=== PATIENT | male | born 1970 ===

== ENCOUNTER 2016-11-17 20:32 | Inpatient (IN) | payer MEDICAID, OTHER, SELFPAY ==
--- NOTE | 2016-11-17 21:09 | C.PDOC ---
History Of Present Illness 46 y/o M c no PMHx p/w chest pressure and dyspnea x 1 week. Symptoms only arise when patient is walking only a short distance (half a block) and get better with rest. He notes associated L hand tingling. He denies fever, cough, leg swelling, nausea, vomiting, diarrhea, recent travel, recent surgery, previous DVT/PE. No PMD. Time Seen by Provider: 11/17/16 20:48 Chief Complaint (Nursing): Chest Pain Past Medical History Vital Signs: Last Vital Signs Temp 97.5 F L 11/19/16 08:19 Pulse 69 11/19/16 08:19 Resp 20 11/19/16 08:19 BP 127/85 11/19/16 08:19 Pulse Ox 96 11/19/16 08:19 - Medical History PMH: Anxiety Surgical History: Appendectomy Family History: States: Diabetes - Social History Hx Tobacco Use: Yes Hx Alcohol Use: No Hx Substance Use: No - Immunization History Hx Tetanus Toxoid Vaccination: No Hx Influenza Vaccination: No Hx Pneumococcal Vaccination: No Review Of Systems Except As Marked, All Systems Reviewed And Found Negative. Constitutional: Negative for: Fever Cardiovascular: Positive for: Chest Pain Respiratory: Positive for: Shortness of Breath Gastrointestinal: Negative for: Vomiting Physical Exam - Physical Exam Additional Physical Exam Comments: Constitutional: No acute distress. Head: Normocephalic. Atraumatic. Eyes: PERRL. ENT: Moist mucous membranes. Neck: No JVD. Cardiovascular: No S3. Chest: No tenderness. Respiratory: No crackles or rhonchi or wheezing GI: Soft. Nontender. Nondistended. Back: No CVA tenderness. Musculoskeletal: No tenderness or swelling of extremities. Skin: No rash. Neurologic: Alert, no focal deficit. ED Course And Treatment - Laboratory Results Result Diagrams: 11/18/16 03:59 11/19/16 07:13 O2 Sat by Pulse Oximetry: 96 Medical Decision Making Medical Decision Making: PERC negative. EKG NSR at 73 bpm, no ST/T wave changes. Enzymes negative. Will keep patient for cardiac observation with concerning history. Dr. Dahl accepts to hospitalist service. Disposition - Disposition Disposition: HOSPITALIZED Disposition Time: 22:40 Condition: FAIR - POA Core Measure Indicators: Chest Pain - Clinical Impression Clinical Impression: Dyspnea on exertion
[2016-11-17 21:21] LABS: BASO # 0.1 K/uL (0.0-0.2); BASO % 0.9 % (0.0-2.0); EOS # 0.1 K/uL (0.0-0.7); EOS % 1.3 % (0.0-4.0); HEMATOCRIT 41.6 % (35.0-51.0); LYMPH # 1.5 K/uL (1.0-4.3); LYMPH % 24.5 % (20.0-40.0); MEAN CELL VOLUME 92.8 fL (80.0-94.0); MEAN CORPUSCULAR HEMOGLOBIN 31.4 pg (27.0-31.0); MEAN CORPUSCULAR HGB CONC 33.8 g/dL (33.0-37.0); MEAN PLATELET VOLUME 9.8 fL (7.2-11.7); MONO # 0.5 K/uL (0.0-0.8); MONO % 8.5 % (0.0-10.0); RED CELL DISTRIBUTION WIDTH 12.4 % (11.5-14.5); WHITE BLOOD COUNT 6.2 K/uL (4.8-10.8)
[2016-11-17 21:30] LABS: CHLORIDE 100 mmol/L (98-107); POTASSIUM 3.6 mmol/L (3.6-5.2); SODIUM 141 mmol/L (132-148)
[2016-11-17 21:32] LABS: AST/SGOT 28 U/L (17-59); BILIRUBIN,TOTAL 0.5 mg/dL (0.2-1.3); CARBON DIOXIDE 26 mmol/L (22-30); GFR AFRICAN-AMERICAN > 60
[2016-11-17 21:33] LABS: ALB/GLOB RATIO 1.5 (1.0-2.1); ALKALINE PHOSPHATASE 44 U/L (38-126); ALT/SGPT 35 U/L (21-72); BLOOD UREA NITROGEN 15 mg/dL (9-20); CALCIUM 8.8 mg/dl (8.6-10.4); GLUCOSE,RANDOM 114 mg/dL (75-110)
--- NOTE | 2016-11-18 01:13 | CP.PCM.HP ---
<Isabella Pearce - Last Filed: 11/18/16 02:55> History of Present Illness - History of Present Illness History of Present Illness: CC: " chest pain" 46 year old male with PMHx of asthma in adolescence, and cocaine use with last use 1 yr ago, presents to the hospital for chest pain and shortness of breath on exertion. Patient states he was healthy and normal until 10 days ago when he was playing in the park with his daughter and needed to stop secondary to chest pain and SOB. Chest pain and SOB resolved when he sat down to rest. Since then, shortness of breath and chest pain occur every time he walks. He noticed he was able to walk 100 steps before he began to feel SOB, but now he is down to 50 ft. Patient describes chest pain is pressure like, mid sternal, intermittent, alleviated by rest. He is able to lay flat and does not wake up in the middle of the night gasping for air. He also reports associated left UE cramping. He took 2 tabs of his mother's hydrocodone, with no relied. Admits to Hx of cocaine and marijuana use, with last use 1 year ago. Denies cough, wheezing, fevers, chills, nausea, vomiting, diarrhea, constipation. PMHx: asthma as an adolescent Medications: none Social Hx: smokes 1ppd for 15 years, stopped 10 days ago. Admits to cocaine and marijuana use 1 year ago. Denies alcohol use. Family Hx: mother with DM, HTN. Father with heroin addiction. Allergies: shrimp Surg Hx: appendectomy. PMD: none Present on Admission - Present on Admission Any Indicators Present on Admission: No Review of Systems - Constitutional Constitutional: absent: Chills, Fever - EENT Eyes: absent: Blurred Vision, Change in Vision - Cardiovascular Cardiovascular: Chest Pain, Chest Pain with Activity, Dyspnea, Dyspnea on Exertion. absent: Chest Pain at Rest, Lightheadedness, Palpitations, Paroxysmal Nocturnal Dyspnea, Pedal Edema, Radiating Pain - Respiratory Respiratory: absent: Cough, Dyspnea, Wheezing - Gastrointestinal Gastrointestinal: absent: Abdominal Pain, Constipation, Diarrhea, Nausea, Vomiting - Genitourinary Genitourinary: absent: Change in Urinary Stream, Difficulty Urinating - Musculoskeletal Musculoskeletal: absent: Back Pain, Numbness, Tingling - Integumentary Integumentary: absent: Lesions, Wounds - Neurological Neurological: absent: Dizziness, Numbness, Headaches, Tingling, Weakness - Psychiatric Psychiatric: absent: Anxiety, Depression - Endocrine Endocrine: absent: Fatigue, Palpitations Past Patient History - Past Social History Smoking Status: Light Smoker < 10 Cigarettes Daily - PSYCHIATRIC Hx Anxiety: Yes Hx Substance Use: No - SURGICAL HISTORY Hx Appendectomy: Yes Meds Allergies/Adverse Reactions: Allergies Allergy/AdvReac Type Severity Reaction Status Date / Time shellfish derived Allergy Verified 11/17/16 20:51 Physical Exam - Constitutional Appears: No Acute Distress - Head Exam Head Exam: NORMAL INSPECTION, NORMOCEPHALIC - Eye Exam Eye Exam: EOMI, Normal appearance - ENT Exam ENT Exam: Mucous Membranes Moist - Neck Exam Neck exam: Positive for: Full Rom, Normal Inspection - Respiratory Exam Respiratory Exam: Clear to Auscultation Bilateral, NORMAL BREATHING PATTERN. absent: Rales, Rhonchi, Wheezes - Cardiovascular Exam Cardiovascular Exam: REGULAR RHYTHM, +S1, +S2. absent: JVD, Systolic Murmur - GI/Abdominal Exam GI & Abdominal Exam: Distended (patient's baseline), Hernia (abdominal, not painful ), Normal Bowel Sounds, Soft. absent: Tenderness - Extremities Exam Extremities exam: Positive for: full ROM, normal inspection. Negative for: pedal edema, tenderness - Back Exam Back exam: NORMAL INSPECTION - Neurological Exam Neurological exam: Alert, Oriented x3 - Psychiatric Exam Psychiatric exam: Normal Affect, Normal Mood - Skin Skin Exam: Dry, Intact, Normal Color, Warm Results - Vital Signs Recent Vital Signs: Last Vital Signs Temp 97.5 F L 11/17/16 20:49 Pulse 66 11/17/16 23:00 Resp 14 11/17/16 23:00 BP 120/80 11/17/16 23:00 Pulse Ox 99 11/17/16 23:00 - Labs Result Diagrams: 11/17/16 21:17 11/17/16 21:17 Assessment & Plan (1) Chest pain Assessment and Plan: Admit to Tele/obs Patient with typical chest pain. Will consult cardio- Dr. Muñoz- help appreciated. KERRY #1 [id number]. EKG: NSR 73bpm. f/u KERRY Q8H X2 with EKG. CXR shows prominent pulm arteries as reviewed by attending. f/u official report. f/u FLP, Hgb A1C, TSH. f/u ECHO Start the following medications ASA 81 mg PO daily Lopressor 25 mg PO BID Crestor 2.5 mg PO HS Status: Acute (2) Dyspnea on exertion Assessment and Plan: see plan above. BNP 44.9 f/u ECHO Status: Acute (3) History of cocaine use Assessment and Plan: Patient reports last use 1 year ago. f/u UDS Status: Acute (4) Prophylactic measure Assessment and Plan: Heparin 5000 SC Q8H Pepcid 20 mg PO BID SCDs Status: Acute <Balta Dahl P - Last Filed: 11/26/16 22:23> Results - Vital Signs Recent Vital Signs: Last Vital Signs Temp 97.3 F L 11/21/16 07:40 Pulse 70 11/21/16 07:40 Resp 36 H 11/21/16 08:03 BP 130/90 11/21/16 07:40 Pulse Ox 100 11/21/16 08:03 - Labs Result Diagrams: 11/21/16 06:20 11/21/16 06:20 Attending/Attestation - Attestation I have personally seen and examined this patient.: Yes I have fully participated in the care of the patient.: Yes I have reviewed all pertinent clinical information: Yes
[2016-11-18 04:06] LABS: BASO % 0.8 % (0.0-2.0); EOS # 0.1 K/uL (0.0-0.7); EOS % 1.4 % (0.0-4.0); HEMATOCRIT 41.2 % (35.0-51.0); LYMPH # 1.8 K/uL (1.0-4.3); LYMPH % 30.8 % (20.0-40.0); MEAN CELL VOLUME 93.2 fL (80.0-94.0); MEAN CORPUSCULAR HEMOGLOBIN 31.6 pg (27.0-31.0); MEAN CORPUSCULAR HGB CONC 33.9 g/dL (33.0-37.0); MEAN PLATELET VOLUME 10.5 fL (7.2-11.7); MONO # 0.5 K/uL (0.0-0.8); MONO % 8.1 % (0.0-10.0); NRBC % 0.1 % (0.0-2.0); RED CELL DISTRIBUTION WIDTH 12.6 % (11.5-14.5)
[2016-11-18 04:25] LABS: CHLORIDE 104 mmol/L (98-107)
[2016-11-18 04:26] LABS: POTASSIUM 4.2 mmol/L (3.6-5.2); SODIUM 139 mmol/L (132-148)
[2016-11-18 04:27] LABS: CHOLESTEROL 194 mg/dL (0-199)
[2016-11-18 04:28] LABS: ALB/GLOB RATIO 1.4 (1.0-2.1); ALKALINE PHOSPHATASE 38 U/L (38-126); ALT/SGPT 38 U/L (21-72); AST/SGOT 28 U/L (17-59); BILIRUBIN,TOTAL 0.8 mg/dL (0.2-1.3); BLOOD UREA NITROGEN 16 mg/dL (9-20); CARBON DIOXIDE 22 mmol/L (22-30); GFR AFRICAN-AMERICAN > 60; GLUCOSE,RANDOM 97 mg/dL (75-110)
[2016-11-18 04:29] LABS: CALCIUM 8.7 mg/dl (8.6-10.4); MAGNESIUM 2.1 mg/dL (1.6-2.3); PHOSPHOROUS 3.5 mg/dL (2.5-4.5)
[2016-11-18 04:59] LABS: THYROID STIMULATING HORMONE 1.38 mIU/L (0.46-4.68)
--- NOTE | 2016-11-18 11:37 | RAD ---
HISTORY: r/o PNA COMPARISON: 04/24/2014 TECHNIQUE: Chest PA and lateral FINDINGS: LUNGS: No active pulmonary disease. PLEURA: No significant pleural effusion identified. No pneumothorax apparent. CARDIOVASCULAR: Normal. OSSEOUS STRUCTURES: No significant abnormalities. VISUALIZED UPPER ABDOMEN: Normal. OTHER FINDINGS: None. IMPRESSION: No active disease.
--- NOTE | 2016-11-18 12:06 | CON ---
DATE: 11/18/2016 A 46-year-old gentleman was brought in with chest discomfort. He denies any history of hypertension, diabetes, documented MS, peptic ulcer disease, bleeding disorders, TIAs or CVAs. On no medication. He does not work. For past 2 weeks, he has been having chest discomfort by walking less than a half a block. Described as a heaviness in the substernal area radiating to the left arm. Relieves with rest. This was getting worse, so he came to the Emergency Room and got admitted. PERSONAL HISTORY: One pack per day smoker. No ETOH abuse. Occasionally cocaine, last use 1 year ag o. FAMILY HISTORY: Mother with diabetes. Father has hypertension and coronary artery disease. ALLERGIES: ALLERGIC TO SHRIMP. PAST MEDICAL HISTORY: Appendectomy and back problems. REVIEW OF SYSTEMS: As above. Occasional wheezing. No fever, no chills, no weight loss. Appetite h as been good. No peptic ulcer disease, no bleeding disorders. No arthritis. No cough, no wheeze. Asthmatic in childhood, but has not bothered since then. No urinary complaints. No arthritis. No T IAs, no CVAs, no depression. PHYSICAL EXAMINATION: GENERAL: Shows a middle-aged male, in no distress. VITAL SIGNS: He is 5 feet 10 inches, weighs 170 pounds. His blood pressure is 110/70, heart rate of 68, regular, respiratory rate of 20, afebrile. HEENT: Normal. NECK: Supple. LUNGS: Clear. CARDIAC: Showed normal S1, S2 with a soft S4 gallop. Grade I-II/ . LABORATORY DATA: Unremarkable. Troponins were negative. ASSESSMENT: A 46-year-old man with history of typical exertional angina, getting worse. RECOMMENDATIONS: Place him on aspirin, Lovenox, beta blockers. The patient needs cardiac catheteriz ation. This was explained to the resident to arrange for cardiac catheterization by calling person jayda ho is on interventional call. We will follow after the cardiac cath is done. I thank you kindly. We will follow on p.r.n. basis. Balta Muñoz MD cc: [id number] TT: 11/18/2016 12:05:05 Confirmation # [id number] Dictation # [id number]
[2016-11-18] MEDS ORDERED: Enoxaparin 80 mg Syringe SC SCH (16:20)
--- NOTE | 2016-11-18 16:46 | CP.PCM.PN ---
<Leah Peters - Last Filed: 11/18/16 16:43> Subjective - Date & Time of Evaluation Date of Evaluation: 11/18/16 Time of Evaluation: 08:25 - Subjective Subjective: Patient seen and examined at bedside this morning. He reports that he does not currently have the chest pain while sitting in bed but that he gets chest pain with associated shortness of breath every time he walks for the past week and a half. He reports that when he gets this pain it is pressure like and midsternal and radiates down his arm. He has no significant medical history and this has not happened in the past other than recently. 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 Patient has no other complaints right now such as headache, changes in vision, sob, abd pain, n/v, diarrhea, constipation, swelling numbness or tingling in the extremities, or urinary complaints. Patient denies recent cocaine use but states he has used in the past. Current UDS is pending. Objective - Vital Signs/Intake and Output Vital Signs (last 24 hours): Temp Pulse Resp BP Pulse Ox 97.2 F L 70 20 123/74 96 11/18/16 16:11 11/18/16 16:11 11/18/16 16:11 11/18/16 16:11 11/18/16 16:11 Intake and Output: 11/18/16 11/18/16 06:59 18:59 Intake Total 150 Balance 150 - Medications Medications: Current Medications Aspirin (Aspirin Chewable) 81 mg PO DAILY [facility] Last Admin: 11/18/16 09:11 Dose: 81 mg Enoxaparin Sodium (Lovenox) 77 mg SC Q12 [facility] Famotidine (Pepcid) 20 mg PO BID [facility] Last Admin: 11/18/16 09:11 Dose: 20 mg Heparin Sodium (Porcine) (Heparin) 5,000 units SC Q8 [facility] Last Admin: 11/18/16 14:23 Dose: 5,000 units Lisinopril (Zestril) 2.5 mg PO DAILY [facility] Metoprolol Tartrate (Lopressor) 25 mg PO BID [facility] Pneumococcal Polyvalent Vaccine (Pneumovax 23 Vaccine) 0.5 ml IM .ONCE ONE Stop: 11/20/16 14:01 Rosuvastatin Calcium (Crestor) 2.5 mg PO HS [facility] - Labs Labs: 11/18/16 03:59 11/18/16 03:59 APTT 36 SECONDS (21-34) H 11/18/16 11:06 - Constitutional Appears: Non-toxic, No Acute Distress - Head Exam Head Exam: ATRAUMATIC, NORMAL INSPECTION - Eye Exam Eye Exam: EOMI, Normal appearance, PERRL Pupil Exam: NORMAL ACCOMODATION - ENT Exam ENT Exam: Mucous Membranes Moist - Respiratory Exam Respiratory Exam: Clear to Ausculation Bilateral, NORMAL BREATHING PATTERN. absent: Accessory Muscle Use, Chest Wall Tenderness, Respiratory Distress - Cardiovascular Exam Cardiovascular Exam: REGULAR RHYTHM, +S1, +S2 - GI/Abdominal Exam GI & Abdominal Exam: Soft, Normal Bowel Sounds. absent: Distended, Firm, Guarding, Tenderness - Extremities Exam Extremities Exam: Normal Inspection. absent: Calf Tenderness, Full ROM, Pedal Edema - Back Exam Back Exam: NORMAL INSPECTION. absent: CVA tenderness (L), CVA tenderness (R), paraspinal tenderness - Neurological Exam Neurological Exam: Alert, Awake, CN II-XII Intact, Oriented x3 Neuro motor strength exam: Left Upper Extremity: 5, Right Upper Extremity: 5, Left Lower Extremity: 5, Right Lower Extremity: 5 - Psychiatric Exam Psychiatric exam: Normal Affect, Normal Mood - Skin Skin Exam: Dry, Intact, Normal Color, Warm Assessment and Plan - Assessment and Plan (Free Text) Assessment: (1) Chest pain Assessment and Plan: Admit to Tele/obs Patient with typical chest pain. Will consult cardio- Dr. Muñoz- help appreciated. -> Consult Dr. Franklin for cardiac cath KERRY #1 0.0250, #2 0.0180, f/u 33 EKG: NSR 73bpm. f/u KERRY Q8H X2 with EKG. CXR shows no active disease Tchol 191, HDL 39, LDL 129, Trig 106 Hgb A1C 3.8 TSH 1.38 f/u ECHO Start the following medications ASA 81 mg PO daily Lisinopril 2.5 mg PO daily Crestor 2.5 mg PO HS Lovenox 77 mg SC BID Avoid BBLock due to possible recent cocaine use until we confirm with UDS Status: Acute (2) Dyspnea on exertion Assessment and Plan: see plan above. BNP 44.9 f/u ECHO results Status: Acute (3) History of cocaine use Assessment and Plan: Patient reports last use 1 year ago. f/u UDS Status: Acute (4) Prophylactic measure Assessment and Plan: On Lovenox Pepcid 20 mg PO BID SCDs Heart healthy diet Status: Acute <Ravinder Lopez H - Last Filed: 11/18/16 17:21> Objective - Vital Signs/Intake and Output Vital Signs (last 24 hours): Temp Pulse Resp BP Pulse Ox 97.2 F L 70 20 123/74 96 11/18/16 16:11 11/18/16 16:11 11/18/16 16:11 11/18/16 16:11 11/18/16 16:11 Intake and Output: 11/18/16 11/18/16 06:59 18:59 Intake Total 150 Balance 150 - Medications Medications: Current Medications Aspirin (Aspirin Chewable) 81 mg PO DAILY [facility] Last Admin: 11/18/16 09:11 Dose: 81 mg Enoxaparin Sodium (Lovenox) 77 mg SC Q12 [facility] Famotidine (Pepcid) 20 mg PO BID [facility] Last Admin: 11/18/16 09:11 Dose: 20 mg Lisinopril (Zestril) 2.5 mg PO DAILY [facility] Metoprolol Tartrate (Lopressor) 25 mg PO BID [facility] Pneumococcal Polyvalent Vaccine (Pneumovax 23 Vaccine) 0.5 ml IM .ONCE ONE Stop: 11/20/16 14:01 Rosuvastatin Calcium (Crestor) 2.5 mg PO HS [facility] - Labs Labs: 11/18/16 03:59 11/18/16 03:59 APTT 36 SECONDS (21-34) H 11/18/16 11:06 Attending/Attestation - Attestation I have personally seen and examined this patient.: Yes I have fully participated in the care of the patient.: Yes I have reviewed all pertinent clinical information, including history, physical exam and plan: Yes Notes (Text): Medical attending: Patient was seen and examined by me, agrees the above note by medical examiner. I reviewed the previous H&P by the admitting team, there is concern that the chest pain represents something quite significant as he can have chest pain even at rest. And it's made worse with exertion and relieved by rest. He was later evaluated by cardiology today and it was recommended that the patient be started on a beta perry as well as anticoagulation with Lovenox subcutaneous twice a day We've done both of these as well as consult for possible cardiac cath. However it should be mentioned that we have not given the beta perry only because a were very concerned that the patient may have used cocaine recently. Were waiting on the urine drug screen to return. If this is negative then we'll think about starting a beta perry as well Thank you very much, Ravinder Lopez
[2016-11-18] MEDS: Rosuvastatin Calcium 2.5 mg Tab PO SCH (21:52)
[2016-11-18] MEDS: Enoxaparin 80 mg Syringe SC SCH (21:53)
[2016-11-19 07:47] LABS: CHLORIDE 105 mmol/L (98-107)
[2016-11-19 07:48] LABS: SODIUM 142 mmol/L (132-148)
[2016-11-19 07:49] LABS: POTASSIUM 3.9 mmol/L (3.6-5.2)
[2016-11-19 07:51] LABS: ALB/GLOB RATIO 1.5 (1.0-2.1); ALKALINE PHOSPHATASE 48 U/L (38-126); ALT/SGPT 43 U/L (21-72); AST/SGOT 28 U/L (17-59); BILIRUBIN,TOTAL 0.6 mg/dL (0.2-1.3); BLOOD UREA NITROGEN 16 mg/dL (9-20); CARBON DIOXIDE 25 mmol/L (22-30); GFR AFRICAN-AMERICAN > 60; GLUCOSE,RANDOM 89 mg/dL (75-110); TOTAL PROTEIN 7.2 g/dL (6.3-8.3)
[2016-11-19 07:52] LABS: CALCIUM 8.6 mg/dl (8.6-10.4); MAGNESIUM 2.2 mg/dL (1.6-2.3); PHOSPHOROUS 4.1 mg/dL (2.5-4.5)
--- NOTE | 2016-11-19 09:42 | CP.PCM.PN ---
Subjective - Date & Time of Evaluation Date of Evaluation: 11/19/16 Time of Evaluation: 09:15 - Subjective Subjective: Patient was seen and examined by me. I sat down and spoke with patient - he says that he has just used cocaine prior to coming to the hospital with the chest pain with exertion. Currently he is not having pain however he is hesitant to walk since he's worried it might cause him pain. He denied palpitations, denied abominal pain, denied fever, denied shortness of breath. I explained to the patient very carefully that using cocaine puts him at high risk and that also we have held BB class medication since he has just used cocaine. Pending echo to be read at this time as he may or may not have vegetations (he did not report fever or chills, and does not have a WBC) He was seen and evaluated by cardiology and may need a cardiac cath, he is on Lovenox SC BID at theraputic doses as well as statin, and blood pressure medications. Objective - Vital Signs/Intake and Output Vital Signs (last 24 hours): Temp Pulse Resp BP Pulse Ox 97.5 F L 69 20 127/85 96 11/19/16 08:19 11/19/16 08:19 11/19/16 08:19 11/19/16 08:19 11/19/16 08:19 Intake and Output: 11/19/16 11/19/16 06:59 18:59 Intake Total 120 Balance 120 - Medications Medications: Current Medications Aspirin (Aspirin Chewable) 81 mg PO DAILY [facility] Last Admin: 11/18/16 09:11 Dose: 81 mg Enoxaparin Sodium (Lovenox) 77 mg SC Q12 [facility] Last Admin: 11/18/16 21:53 Dose: 77 mg Famotidine (Pepcid) 20 mg PO BID [facility] Last Admin: 11/18/16 18:05 Dose: 20 mg Ibuprofen (Motrin Tab) 600 mg PO TID PRN PRN Reason: Pain, moderate (4-7) Lisinopril (Zestril) 2.5 mg PO DAILY [facility] Metoprolol Tartrate (Lopressor) 25 mg PO BID [facility] Pneumococcal Polyvalent Vaccine (Pneumovax 23 Vaccine) 0.5 ml IM .ONCE ONE Stop: 11/20/16 14:01 Rosuvastatin Calcium (Crestor) 2.5 mg PO HS [facility] Last Admin: 11/18/16 21:52 Dose: 2.5 mg - Labs Labs: 11/18/16 03:59 11/19/16 07:13 APTT 36 SECONDS (21-34) H 11/18/16 11:06 - Constitutional Appears: Well, No Acute Distress - Head Exam Head Exam: NORMAL INSPECTION - Eye Exam Eye Exam: EOMI - ENT Exam ENT Exam: Mucous Membranes Moist - Neck Exam Neck Exam: Full ROM - Respiratory Exam Respiratory Exam: Clear to Ausculation Bilateral, NORMAL BREATHING PATTERN - Cardiovascular Exam Cardiovascular Exam: REGULAR RHYTHM - GI/Abdominal Exam GI & Abdominal Exam: Soft, Normal Bowel Sounds - Neurological Exam Neurological Exam: Alert, Awake, CN II-XII Intact, Oriented x3 Neuro motor strength exam: Left Upper Extremity: 5, Right Upper Extremity: 5, Left Lower Extremity: 5, Right Lower Extremity: 5 - Psychiatric Exam Psychiatric exam: Normal Affect, Normal Mood - Skin Skin Exam: Normal Color, Warm Assessment and Plan - Assessment and Plan (Free Text) Assessment: Assessment: (1) Chest pain + Cocaine use very recently 11/19: Pending on echo to return to assess for vegetations. Probably does not since the WBC are stable and no fever. He also smokes tobbaco as well. He may or may not need a cardiac cath. He is on Lovenox BID in theraputic doses. No BB at this time. Patient with typical chest pain. Will consult cardio- Dr. Muñoz- help appreciated. -> Consult Dr. Franklin for cardiac cath KERRY #1 0.0250, #2 0.0180, f/u 33 EKG: NSR 73bpm. f/u KERRY Q8H X2 with EKG. CXR shows no active disease Tchol 191, HDL 39, LDL 129, Trig 106 Hgb A1C 3.8 TSH 1.38 f/u ECHO Start the following medications ASA 81 mg PO daily Lisinopril 2.5 mg PO daily Crestor 2.5 mg PO HS Lovenox 77 mg SC BID Avoid BBLock due to possible recent cocaine use until we confirm with UDS Status: Acute (2) Dyspnea on exertion see plan above. BNP 44.9 f/u ECHO results (3) History of cocaine use 11/19: He reports useage one day before comming to the hospital. UDS positive Avoiding BB for now. (4) Prophylactic measure Assessment and Plan: On Lovenox Pepcid 20 mg PO BID Heart healthy diet
[2016-11-19] MEDS: Enoxaparin 80 mg Syringe SC SCH ×2 (10:42→22:27)
--- NOTE | 2016-11-19 11:38 | CP.PCM.CON ---
History of Present Illness - History of Present Illness History of Present Illness: CC: " chest pain" 46 year old male with PMHx of asthma in adolescence, and cocaine use with last use 1 yr ago, presents to the hospital for chest pain and shortness of breath on exertion. Patient states he was healthy and normal until 10 days ago when he was playing in the park with his daughter and needed to stop secondary to chest pain and SOB. Chest pain and SOB resolved when he sat down to rest. Since then, shortness of breath and chest pain occur every time he walks. He noticed he was able to walk 100 steps before he began to feel SOB, but now he is down to 50 ft. Patient describes chest pain is pressure like, mid sternal, intermittent, alleviated by rest. He is able to lay flat and does not wake up in the middle of the night gasping for air. He also reports associated left UE cramping. He took 2 tabs of his mother's hydrocodone, with no relied. Admits to Hx of cocaine and marijuana use, with last use 1 year ago. Denies cough, wheezing, fevers, chills, nausea, vomiting, diarrhea, constipation. PMHx: asthma as an adolescent Medications: none Social Hx: smokes 1ppd for 15 years, stopped 10 days ago. Admits to cocaine and marijuana use 1 year ago. Denies alcohol use. Family Hx: mother with DM, HTN. Father with heroin addiction. Allergies: shrimp Surg Hx: appendectomy. PMD: none TODAY: 11/20/16: c/o of central CP reproducible at mid-lower sternum, no radiation , TELE: NSR, normal HR No fevers, chills, N/V; no PND or orthopnea Review of Systems - Review of Systems All systems: reviewed and no additional remarkable complaints except Past Patient History - Past Medical History & Family History Past Medical History?: Yes - Past Social History Smoking Status: Light Smoker < 10 Cigarettes Daily - CARDIAC Hx Cardiac Disorders: No - PULMONARY Hx Respiratory Disorders: Yes Hx Asthma: Yes (" When I was young") - NEUROLOGICAL Hx Neurological Disorder: No - HEENT Hx HEENT Problems: No - RENAL Hx Chronic Kidney Disease: No - ENDOCRINE/METABOLIC Hx Endocrine Disorders: No - HEMATOLOGICAL/ONCOLOGICAL Hx Blood Disorders: No - INTEGUMENTARY Hx Dermatological Problems: No - MUSCULOSKELETAL/RHEUMATOLOGICAL Hx Musculoskeletal Disorders: No Hx Falls: No - GASTROINTESTINAL Hx Gastrointestinal Disorders: No - GENITOURINARY/GYNECOLOGICAL Hx Genitourinary Disorders: No - PSYCHIATRIC Hx Anxiety: Yes Hx Substance Use: No - SURGICAL HISTORY Hx Appendectomy: Yes - ANESTHESIA Hx Anesthesia: Yes Hx Anesthesia Reactions: No Hx Malignant Hyperthermia: No Has any member of the family had a problem w/ anesthesia?: No Meds Allergies/Adverse Reactions: Allergies Allergy/AdvReac Type Severity Reaction Status Date / Time shellfish derived Allergy Verified 11/17/16 20:51 - Medications Medications: Current Medications Aspirin (Aspirin Chewable) 81 mg PO DAILY [facility] Last Admin: 11/19/16 10:33 Dose: 81 mg Enoxaparin Sodium (Lovenox) 77 mg SC Q12 [facility] Last Admin: 11/19/16 10:42 Dose: 77 mg Famotidine (Pepcid) 20 mg PO BID [facility] Last Admin: 11/19/16 10:33 Dose: 20 mg Ibuprofen (Motrin Tab) 600 mg PO TID PRN PRN Reason: Pain, moderate (4-7) Last Admin: 11/19/16 10:33 Dose: 600 mg Lisinopril (Zestril) 2.5 mg PO DAILY [facility] Last Admin: 11/19/16 10:42 Dose: 2.5 mg Metoprolol Tartrate (Lopressor) 25 mg PO BID [facility] Pneumococcal Polyvalent Vaccine (Pneumovax 23 Vaccine) 0.5 ml IM .ONCE ONE Stop: 11/20/16 14:01 Rosuvastatin Calcium (Crestor) 2.5 mg PO HS [facility] Last Admin: 11/18/16 21:52 Dose: 2.5 mg Physical Exam - Head Exam Head Exam: ATRAUMATIC, NORMAL INSPECTION, NORMOCEPHALIC - Eye Exam Eye Exam: Normal appearance - ENT Exam ENT Exam: Mucous Membranes Moist, Normal Oropharynx - Neck Exam Neck exam: Negative for: Tenderness, Thyromegaly - Respiratory Exam Respiratory Exam: Clear to Auscultation Bilateral, NORMAL BREATHING PATTERN. absent: Rhonchi, Wheezes - Cardiovascular Exam Cardiovascular Exam: REGULAR RHYTHM, +S1, +S2. absent: +S4, Systolic Murmur - GI/Abdominal Exam GI & Abdominal Exam: Normal Bowel Sounds, Soft. absent: Tenderness - Extremities Exam Extremities exam: Positive for: normal inspection. Negative for: calf tenderness - Back Exam Back exam: absent: CVA tenderness (L), CVA tenderness (R) - Neurological Exam Neurological exam: Alert, Oriented x3 - Psychiatric Exam Psychiatric exam: Anxious - Skin Skin Exam: Normal Color, Warm Results - Vital Signs Recent Vital Signs: Last Vital Signs Temp 97.5 F L 11/19/16 08:19 Pulse 69 11/19/16 08:19 Resp 20 11/19/16 08:19 BP 127/85 11/19/16 08:19 Pulse Ox 96 11/19/16 10:22 - Labs Result Diagrams: 11/18/16 03:59 11/20/16 07:36 Labs: Laboratory Results - last 24 hr 11/18/16 11/18/16 11/19/16 16:54 19:10 07:13 Sodium 142 Potassium 3.9 Chloride 105 Carbon Dioxide 25 Anion Gap 16 BUN 16 Creatinine 0.9 Est GFR ( Amer) > 60 Est GFR (Non-Af Amer) > 60 Random Glucose 89 Calcium 8.6 Phosphorus 4.1 Magnesium 2.2 Total Bilirubin 0.6 AST 28 ALT 43 Alkaline Phosphatase 48 Total Creatine Kinase 86 CK-MB (Mass) 0.68 Troponin I, Quant 0.0150 Total Protein 7.2 Albumin 4.3 Globulin 2.8 Albumin/Globulin Ratio 1.5 Urine Opiates Screen Negative Urine Methadone Screen Negative Ur Barbiturates Screen Negative Ur Phencyclidine Scrn Negative Ur Amphetamines Screen Negative U Benzodiazepines Scrn Negative U Oth Cocaine Metabols Positive U Cannabinoids Screen Negative Assessment & Plan - Assessment and Plan (Free Text) Assessment: 46 y/o with recurrence CP; * EKG 11/18/16; NSR, no acute changes * ECHO directly seen by me: 11/18/16: normal LVEF and wall motion, mild LVH, Mild LAE, grade 2 DD, Normal PASP * CXR: No infiltrate or effusion Given recurrence of pain especially with exertion: R&B of cath discussed and patient agrees: will plan in AM 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
[2016-11-19] MEDS: Rosuvastatin Calcium 2.5 mg Tab PO SCH (22:27)
[2016-11-20 07:52] LABS: CHLORIDE 100 mmol/L (98-107); SODIUM 142 mmol/L (132-148)
[2016-11-20 07:54] LABS: GFR AFRICAN-AMERICAN > 60
[2016-11-20 07:55] LABS: ALB/GLOB RATIO 1.5 (1.0-2.1); ALKALINE PHOSPHATASE 43 U/L (38-126); ALT/SGPT 45 U/L (21-72); AST/SGOT 34 U/L (17-59); BILIRUBIN,TOTAL 0.4 mg/dL (0.2-1.3); BLOOD UREA NITROGEN 16 mg/dL (9-20); CARBON DIOXIDE 30 mmol/L (22-30); GLUCOSE,RANDOM 85 mg/dL (75-110); TOTAL PROTEIN 7.2 g/dL (6.3-8.3)
[2016-11-20 07:56] LABS: MAGNESIUM 2.2 mg/dL (1.6-2.3); PHOSPHOROUS 4.2 mg/dL (2.5-4.5)
[2016-11-20] MEDS: Enoxaparin 80 mg Syringe SC SCH ×2 (09:05→21:15)
--- NOTE | 2016-11-20 09:18 | CP.PCM.PN ---
Subjective - Date & Time of Evaluation Date of Evaluation: 11/20/16 Time of Evaluation: 09:00 - Subjective Subjective: Patient reported a brief episode of pain overnight. As mentioned before the paintent is here with Chest Pain, and shortness of breath, he had just recently used cocaine At rest he denied shortness of breath at rest, denied palpitations, denied headache, denied abdominal pain, denied fever/chills On exam we also walked the patient in the hallway, he denied chest pain with walking, denied palpitation. He also denied shortness of breath when walking with me - however I should point out he looked short of breath when I watched him though he denies this. Denied palpitations. On the child monitor he was NSR and HR 90s when walking. Still pending on the echo to be reported. Objective - Vital Signs/Intake and Output Vital Signs (last 24 hours): Temp Pulse Resp BP Pulse Ox 97.8 F 67 20 129/90 97 11/20/16 07:00 11/20/16 07:00 11/20/16 07:00 11/20/16 07:00 11/20/16 07:00 Intake and Output: 11/20/16 11/20/16 06:59 18:59 Intake Total 240 Balance 240 - Medications Medications: Current Medications Aspirin (Aspirin Chewable) 81 mg PO DAILY [facility] Last Admin: 11/20/16 09:07 Dose: 81 mg Enoxaparin Sodium (Lovenox) 77 mg SC Q12 [facility] Last Admin: 11/20/16 09:05 Dose: 77 mg Famotidine (Pepcid) 20 mg PO BID [facility] Last Admin: 11/20/16 09:04 Dose: 20 mg Ibuprofen (Motrin Tab) 600 mg PO TID PRN PRN Reason: Pain, moderate (4-7) Last Admin: 11/19/16 10:33 Dose: 600 mg Lisinopril (Zestril) 2.5 mg PO DAILY [facility] Last Admin: 11/20/16 09:04 Dose: 2.5 mg Pneumococcal Polyvalent Vaccine (Pneumovax 23 Vaccine) 0.5 ml IM .ONCE ONE Stop: 11/20/16 14:01 Rosuvastatin Calcium (Crestor) 2.5 mg PO [facility] Last Admin: 11/19/16 22:27 Dose: 2.5 mg - Labs Labs: 11/20/16 07:36 APTT 36 SECONDS (21-34) H 11/18/16 11:06 - Constitutional Appears: Well, No Acute Distress - Eye Exam Eye Exam: EOMI, Normal appearance - ENT Exam ENT Exam: Mucous Membranes Moist - Respiratory Exam Respiratory Exam: Clear to Ausculation Bilateral, NORMAL BREATHING PATTERN - Cardiovascular Exam Cardiovascular Exam: REGULAR RHYTHM - GI/Abdominal Exam GI & Abdominal Exam: Soft, Normal Bowel Sounds Assessment and Plan - Assessment and Plan (Free Text) Assessment: (1) Chest pain + Cocaine use very recently 11/20: Still pending echo at this time. 11/19: Pending on echo to return to assess for vegetations. Probably does not since the WBC are stable and no fever. He also smokes tobbaco as well. He may or may not need a cardiac cath. He is on Lovenox BID in theraputic doses. No BB at this time. Patient with typical chest pain. Will consult cardio- Dr. Muñoz- help appreciated. -> Consult Dr. Franklin for cardiac cath KERRY #1 0.0250, #2 0.0180, f/u 33 EKG: NSR 73bpm. f/u KERRY Q8H X2 with EKG. CXR shows no active disease Tchol 191, HDL 39, LDL 129, Trig 106 Hgb A1C 3.8 TSH 1.38 f/u ECHO ASA 81 mg PO daily Lisinopril 2.5 mg PO daily Crestor 2.5 mg PO HS Lovenox 77 mg SC BID Avoid BBLock due to recent cocaine use, + UDS (2) Dyspnea on exertion see plan above. BNP 44.9 f/u ECHO results (3) History of cocaine use 11/20: We had another very long conversation about the dangers of cocaine. 11/19: He reports useage one day before comming to the hospital. UDS positive Avoiding BB for now. (4) Prophylactic measure Assessment and Plan: On Lovenox Pepcid 20 mg PO BID Heart healthy diet
[2016-11-20] MEDS ORDERED: Pneumococcal 23-Valent Vaccine IM ONE (14:00)
--- NOTE | 2016-11-20 15:42 | CP.PCM.PN ---
Subjective - Date & Time of Evaluation Date of Evaluation: 11/20/16 Time of Evaluation: 15:41 - Subjective Subjective: no chest pains.seen by interventional cardio.cath in am. Objective - Vital Signs/Intake and Output Vital Signs (last 24 hours): Temp Pulse Resp BP Pulse Ox 97.8 F 74 20 144/76 97 11/20/16 07:00 11/20/16 13:17 11/20/16 07:00 11/20/16 13:17 11/20/16 07:00 Intake and Output: 11/20/16 11/20/16 06:59 18:59 Intake Total 240 600 Balance 240 600 - Medications Medications: Current Medications Aspirin (Aspirin Chewable) 81 mg PO DAILY [facility] Last Admin: 11/20/16 09:07 Dose: 81 mg Enoxaparin Sodium (Lovenox) 77 mg SC Q12 [facility] Last Admin: 11/20/16 09:05 Dose: 77 mg Famotidine (Pepcid) 20 mg PO BID [facility] Last Admin: 11/20/16 09:04 Dose: 20 mg Ibuprofen (Motrin Tab) 600 mg PO TID PRN PRN Reason: Pain, moderate (4-7) Last Admin: 11/20/16 13:15 Dose: 600 mg Lisinopril (Zestril) 2.5 mg PO DAILY [facility] Last Admin: 11/20/16 09:04 Dose: 2.5 mg Rosuvastatin Calcium (Crestor) 2.5 mg PO HS [facility] Last Admin: 11/19/16 22:27 Dose: 2.5 mg - Labs Labs: 11/20/16 07:36 APTT 36 SECONDS (21-34) H 11/18/16 11:06 - Constitutional Appears: No Acute Distress Assessment and Plan - Assessment and Plan (Free Text) Assessment: cath in am.
--- NOTE | 2016-11-20 16:38 | CARD ---
APPROVED REPORT EKG Measurement Heart [id number] MS [id number] [id number] <Conclusion> Normal sinus rhythm Normal ECG
[2016-11-20] MEDS: Rosuvastatin Calcium 2.5 mg Tab PO SCH (21:14)
[2016-11-21 06:22] LABS: BASO # 0.1 K/uL (0.0-0.2); BASO % 0.7 % (0.0-2.0); EOS # 0.2 K/uL (0.0-0.7); EOS % 2.2 % (0.0-4.0); HEMATOCRIT 41.3 % (35.0-51.0); LYMPH # 1.9 K/uL (1.0-4.3); LYMPH % 24.2 % (20.0-40.0); MEAN CELL VOLUME 93.6 fL (80.0-94.0); MEAN CORPUSCULAR HEMOGLOBIN 31.7 pg (27.0-31.0); MEAN CORPUSCULAR HGB CONC 33.8 g/dL (33.0-37.0); MEAN PLATELET VOLUME 10.1 fL (7.2-11.7); MONO # 0.7 K/uL (0.0-0.8); MONO % 8.3 % (0.0-10.0); RED CELL DISTRIBUTION WIDTH 12.6 % (11.5-14.5)
[2016-11-21 06:39] LABS: CHLORIDE 102 mmol/L (98-107); POTASSIUM 4.2 mmol/L (3.6-5.2); SODIUM 141 mmol/L (132-148)
[2016-11-21 06:41] LABS: BILIRUBIN,TOTAL 0.7 mg/dL (0.2-1.3); CARBON DIOXIDE 24 mmol/L (22-30); GFR AFRICAN-AMERICAN > 60
[2016-11-21 06:42] LABS: ALB/GLOB RATIO 1.4 (1.0-2.1); ALKALINE PHOSPHATASE 38 U/L (38-126); ALT/SGPT 73 U/L (21-72); AST/SGOT 56 U/L (17-59); BLOOD UREA NITROGEN 15 mg/dL (9-20); CALCIUM 8.2 mg/dl (8.6-10.4); GLUCOSE,RANDOM 88 mg/dL (75-110); MAGNESIUM 1.9 mg/dL (1.6-2.3); PHOSPHOROUS 3.9 mg/dL (2.5-4.5); TOTAL PROTEIN 6.7 g/dL (6.3-8.3)
--- NOTE | 2016-11-21 07:56 | CP.PCM.PN ---
Subjective - Date & Time of Evaluation Date of Evaluation: 11/21/16 Time of Evaluation: 07:54 - Subjective Subjective: Patient seen and examined at bedside. Objective - Vital Signs/Intake and Output Vital Signs (last 24 hours): Temp Pulse Resp BP Pulse Ox 97.9 F 68 20 115/78 98 11/21/16 04:00 11/21/16 04:34 11/21/16 04:00 11/21/16 04:00 11/21/16 04:00 Intake and Output: 11/21/16 11/21/16 06:59 18:59 Intake Total 0 Balance 0 - Medications Medications: Current Medications Aspirin (Aspirin Chewable) 81 mg PO DAILY [facility] Last Admin: 11/20/16 09:07 Dose: 81 mg Enoxaparin Sodium (Lovenox) 77 mg SC Q12 [facility] Last Admin: 11/20/16 21:15 Dose: 77 mg Famotidine (Pepcid) 20 mg PO BID [facility] Last Admin: 11/20/16 17:04 Dose: 20 mg Ibuprofen (Motrin Tab) 600 mg PO TID PRN PRN Reason: Pain, moderate (4-7) Last Admin: 11/20/16 13:15 Dose: 600 mg Lisinopril (Zestril) 2.5 mg PO DAILY [facility] Last Admin: 11/20/16 09:04 Dose: 2.5 mg Rosuvastatin Calcium (Crestor) 2.5 mg PO HS [facility] Last Admin: 11/20/16 21:14 Dose: 2.5 mg - Labs Labs: 11/21/16 06:20 11/21/16 06:20 PT 11.0 SECONDS (9.7-12.2) 11/21/16 06:20 INR 1.0 11/21/16 06:20 APTT 36 SECONDS (21-34) H 11/18/16 11:06 Assessment and Plan - Assessment and Plan (Free Text) Assessment: (1) Chest pain + Cocaine use very recently 11/21: For cardiac cath today. 11/20: Still pending echo at this time. 11/19: Pending on echo to return to assess for vegetations. Probably does not since the WBC are stable and no fever. He also smokes tobbaco as well. He may or may not need a cardiac cath. He is on Lovenox BID in theraputic doses. No BB at this time. Patient with typical chest pain. Will consult cardio- Dr. Muñoz- help appreciated. -> Consult Dr. Franklin for cardiac cath KERRY #1 0.0250, #2 0.0180, f/u 33 EKG: NSR 73bpm. f/u KERRY Q8H X2 with EKG. CXR shows no active disease Tchol 191, HDL 39, LDL 129, Trig 106 Hgb A1C 3.8 TSH 1.38 f/u ECHO ASA 81 mg PO daily Lisinopril 2.5 mg PO daily Crestor 2.5 mg PO HS Lovenox 77 mg SC BID Avoid BBLock due to recent cocaine use, + UDS (2) Dyspnea on exertion see plan above. BNP 44.9 f/u ECHO results (3) History of cocaine use 11/21: Continue to counselor marriage and family patient regarding dangers of cocaine use. 11/20: We had another very long conversation about the dangers of cocaine. 11/19: He reports useage one day before comming to the hospital. UDS positive Avoiding BB for now. (4) Prophylactic measure Assessment and Plan: On Lovenox Pepcid 20 mg PO BID Heart healthy diet
--- NOTE | 2016-11-21 08:05 | CP.PCM.PN ---
Subjective - Date & Time of Evaluation Date of Evaluation: 11/21/16 Time of Evaluation: 08:02 - Subjective Subjective: Patient seen and examined at bedside. Objective - Vital Signs/Intake and Output Vital Signs (last 24 hours): Temp Pulse Resp BP Pulse Ox 97.9 F 68 20 115/78 98 11/21/16 04:00 11/21/16 04:34 11/21/16 04:00 11/21/16 04:00 11/21/16 04:00 Intake and Output: 11/21/16 11/21/16 06:59 18:59 Intake Total 0 Balance 0 - Medications Medications: Current Medications Aspirin (Aspirin Chewable) 81 mg PO DAILY [facility] Last Admin: 11/20/16 09:07 Dose: 81 mg Enoxaparin Sodium (Lovenox) 77 mg SC Q12 [facility] Last Admin: 11/20/16 21:15 Dose: 77 mg Famotidine (Pepcid) 20 mg PO BID [facility] Last Admin: 11/20/16 17:04 Dose: 20 mg Ibuprofen (Motrin Tab) 600 mg PO TID PRN PRN Reason: Pain, moderate (4-7) Last Admin: 11/20/16 13:15 Dose: 600 mg Lisinopril (Zestril) 2.5 mg PO DAILY [facility] Last Admin: 11/20/16 09:04 Dose: 2.5 mg Rosuvastatin Calcium (Crestor) 2.5 mg PO HS [facility] Last Admin: 11/20/16 21:14 Dose: 2.5 mg - Labs Labs: 11/21/16 06:20 11/21/16 06:20 PT 11.0 SECONDS (9.7-12.2) 11/21/16 06:20 INR 1.0 11/21/16 06:20 APTT 36 SECONDS (21-34) H 11/18/16 11:06 Assessment and Plan - Assessment and Plan (Free Text) Assessment: Right Sided Hemiparesis 11/21: 11/20: Resolved. The MRI did not show acute findings. Patient was not entirely cooperative on exam this morning, got xanax due to agitation and throwing phone at hospital staff. 11/19: No acute findings on the MRI Brain, only her old Basal Ganglia infarct. f/ u carotid doppler 11/18-11/19: Resolved, facial droop not evident. - secondary to hypoglycemia vs TIA vs CVA vs seizure - Resolved s/p D50 administration - CT head - Focal hypodensity in the left basal ganglia suggestive for a chronic lacunar infarct. Chronic microvascular ischemic changes. Cerebellar atrophy. Sinus mucosal thickening. Please see full report - Neurology consulted (Usha) - help appreciated - ED spoke with Dr Kerr - believes it likely to be due to hypoglycemia - f/u further recs - seizure precautions Urinary Tract Infection and urinary retention 11/21: Urine culture (11/19) clean and no growth. Will bladder scan to evaluate for retention. 11/20: Will Bladder scan again - if still a lot of urine then will start a burgos. She did have some tenderness on abdomen. 11/19: Bladder scan 460cc. Patient was straight cathed. f/u urine culture Start Rocephin 1Gm IVPB Q12 (started 11/19) 11/18: UA(+) for 2+ Leuk esterase and occult high bacteria. Consider as source of AMS, patient otherwise asymptomatic on exam. Hypoglycemia 11/21: Glucose 11/20: Doing ok right now 11/19: WNL 11/18: Random glucose 410, however most readings WNL on ISS. -BG 44 at presentation to ED, D50 given - resolved HISS Holding home meds accuchecks Hx of Diabetes Mellitus 11/21 11/18: Random glucose 410, however most readings WNL on ISS. A1C of 6.3 Holding home meds HISS Accuchecks Hx of hypertension Losartan 50mg Daily HCTZ 12.5 mg Daily Monitor and adjust as necessary Hx of vertigo restart home meclizine Hx of Lymphoma being treated outpatient by Josef Mondragon ([phone]) Per family, had PET scan in Jul 2016 that was normal, and last treatment was in Aug 2016 Hx of Depression Patient takes Trintellix 10mg PO daily (not on formulary). to start 11/19. PPX Lovenox Pepcid PT/OT treat and eval
[2016-11-21 08:36] VITALS: BP 130/90; PULSE 70; TEMP 97.3
[2016-11-21] MEDS ORDERED: Heparin25000 units/250ml 1/2NS 250 ML IV ONE (09:05)
--- NOTE | 2016-11-21 09:11 | CP.PCM.PN ---
Subjective - Date & Time of Evaluation Date of Evaluation: 11/21/16 Time of Evaluation: 09:08 - Subjective Subjective: S/P C. Cath Severe distal LM, ostial LAD, ostial LCX, mid LCX and mid RCA disease Calcific stenosis Low-normal LVEF with elevated LVEDP Patient will need referral for CABG this admission based on critical anatomy. Plan: Heparin GTT PTT 50-60; cont ASA, crestor, initiate B-blockers, cont LINA- I. Arrangements will be made for CABG. Objective - Vital Signs/Intake and Output Vital Signs (last 24 hours): Temp Pulse Resp BP Pulse Ox 97.3 F L 70 16 130/90 98 11/21/16 07:40 11/21/16 07:40 11/21/16 07:40 11/21/16 07:40 11/21/16 07:40 Intake and Output: 11/21/16 11/21/16 06:59 18:59 Intake Total 0 Balance 0 - Medications Medications: Current Medications Aspirin (Aspirin Chewable) 81 mg PO DAILY [facility] Last Admin: 11/20/16 09:07 Dose: 81 mg Enoxaparin Sodium (Lovenox) 77 mg SC Q12 [facility] Last Admin: 11/20/16 21:15 Dose: 77 mg Famotidine (Pepcid) 20 mg PO BID [facility] Last Admin: 11/20/16 17:04 Dose: 20 mg Ibuprofen (Motrin Tab) 600 mg PO TID PRN PRN Reason: Pain, moderate (4-7) Last Admin: 11/20/16 13:15 Dose: 600 mg Lisinopril (Zestril) 2.5 mg PO DAILY [facility] Last Admin: 11/20/16 09:04 Dose: 2.5 mg Rosuvastatin Calcium (Crestor) 2.5 mg PO HS [facility] Last Admin: 11/20/16 21:14 Dose: 2.5 mg - Labs Labs: 11/21/16 06:20 11/21/16 06:20 PT 11.0 SECONDS (9.7-12.2) 11/21/16 06:20 INR 1.0 11/21/16 06:20 APTT 36 SECONDS (21-34) H 11/18/16 11:06
--- NOTE | 2016-11-21 09:27 | CARDCATH ---
PROCEDURE DATE: 11/21/2016 PROCEDURES: Left heart catheterization, left ventriculogram, coronary angiogram. BRIEF HISTORY: The patient is a 46-year-old male who has a history of smoking 1 pack per day for ove r 15 years and he has admitted to using illicit substances in the past, per charts more than 1 year a go. He presents with recurrent chest pain and shortness of breath with exertion. Inpatient workup r evealed no evidence for troponin elevation, normal sinus rhythm on EKG and normal LV function and wal l motion on echocardiogram. Due to persistence of chest pain and shortness of breath, patient was br ought to the cardiac catheterization lab after informed consent obtained. Risks and benefits of the procedure were explained in detail to the patient. The patient was brought to the manager cardiac cath, prepped and draped in the usual sterile fashion and pre-katiuska tion with Solu-Cortef, Benadryl, Pepcid was given for reported SHELLFISH ALLERGY. Local lidocaine wa s infused over the right femoral artery area and a 6-Malian sheath was placed using a micropuncture a ccess technique. Standard diagnostic catheters were used for the left coronary system and a Stewart right was used for the right coronary system with the following findings: 1. Left main artery: Normal caliber with calcium and 70% distal left main disease involving the ost ium of both the LAD and the left circumflex artery. 2. The left anterior descending artery had a 90% ostial lesion followed by a 70% proximal and mid ta ndem lesions. Overall, vessel was normal caliber. 3. The left circumflex artery had a 90% ostial stenosis followed by a 90% stenosis in the mid left c ircumflex. Both LAD and circumflex arteries were normal caliber vessels. 4. The right coronary artery had a 90% mid RCA lesion; however, this artery was nondominant and smal l. 5. Also noted was extensive calcification in the left coronary proximal system. Left ventriculography was performed using a pigtail catheter revealing ejection fraction in the range of 50%-55% with elevated left ventricular end-diastolic pressure of 38 mmHg. Catheters and wires were removed. The right femoral artery sheath was removed and Angio-Seal deploye d to maintain hemostasis. IMPRESSION: 1. Severe coronary artery disease involving the left main, ostial left anterior descending, ostial c ircumflex, mid circumflex, mid right coronary artery with calcified vessels. 2. Low normal left ventricular systolic function with elevated left ventricular end-diastolic pressu re. PLAN: Based on the anatomy, patient will need coronary artery bypass grafting during this admission. Heparin will be started interim along with maximal medical therapy for coronary artery disease. Freddy Hayward MD cc: [id number] TT: 11/21/2016 09:27:01 en
--- NOTE | 2016-11-21 10:00 | CARD ---
APPROVED REPORT EXAM: Two-dimensional and M-mode echocardiogram with Doppler and color Doppler. Other Information Quality : GoodRhythm : NSR INDICATION Chest Pain COCAINE M-Mode DIMENSIONS RVDd2.03 (2.1-3.2cm)Left Atrium (MM)4.69 (2.5-4.0cm) IVSd1.13 (0.7-1.1cm)Aortic Root2.81 (2.2-3.7cm) LVDd4.61 (4.0-5.6cm)Aortic Cusp Exc.1.80 (1.5-2.0cm) PWd1.13 (0.7-1.1cm)FS (%) 42 % LVDs2.66 (2.0-3.8cm)LVEF (%)73 (>50%) Aortic Valve AoV Peak Qpapesri893.3cm/Bob Peak GR.6mmHgLVOT Peak Gqrezqha394.7cm/s Mitral Valve MV E Sunqnntg64.9cm/sMV A Jwceudzf04.5cm/sE/A ratio1.1 TDI E/Lateral E'0.0E/Medial E'0.0 Tricuspid Valve TR Peak Khrgopyv328ux/sTR Peak Gr.38lzHxOGBB10xjRb <Conclusion> Left ventricle: thickness: upper limit of normal; size: normal; overall ejection fraction: 65%: diastolic filling pressures: borderline elevated Mitral valve: annulus: normal: leaflets: normal: excursion: normal; no significant trans-mitral gradient: No significant incompetence: left atrium: upper limit of normal Aortic valve: leaflets: normal: excursion: normal; no significant trans-aortic gradient: No significant incompetence: aortic root: normal Right sided Structures: Pulmonary valve: normal; no significant incompetence; Tricuspid valve: normal; no significant incompetence: Intra-cardiac hemodynamics: pulmonary systolic pressures: 40; central venous pressures: normal No pericardial effusion
--- NOTE | 2016-11-21 10:27 | CARD ---
APPROVED REPORT EKG Measurement Heart [id number] NM 138P3 [id number] <Conclusion> Normal sinus rhythm Normal ECG
[2016-11-21 11:53] VITALS: RESP 36; O2SAT 100
--- NOTE | 2016-11-21 12:20 | CP.PCM.DIS ---
<Abisaijuan ramonCarolin - Last Filed: 11/21/16 12:17> Provider - Provider Date of Admission: 11/19/16 18:22 Attending physician: Balta Dahl MD Consults: Brazer Helper Induction, Dr. Muñoz Enterprise Analyst, Dr. Hayward Time Spent in preparation of Discharge (in minutes): 31 Diagnosis - Discharge Diagnosis (1) Triple vessel disease of the heart Status: Acute Comment: Patient transferred to [facility] for CABG. (2) Dyspnea on exertion Status: Acute Comment: secondary to cardiac disease. (3) History of cocaine use Status: Acute Comment: Counseled patient to stop using cocaine. Hospital Course - Lab Results Lab Results: Most Recent Lab Values WBC 8.0 K/uL (4.8-10.8) 11/21/16 06:20 RBC 4.42 Mil/uL (4.40-5.90) 11/21/16 06:20 Hgb 14.0 g/dL (12.0-18.0) 11/21/16 06:20 Hct 41.3 % (35.0-51.0) 11/21/16 06:20 MCV 93.6 fL (80.0-94.0) 11/21/16 06:20 MCH 31.7 pg (27.0-31.0) H 11/21/16 06:20 MCHC 33.8 g/dL (33.0-37.0) 11/21/16 06:20 RDW 12.6 % (11.5-14.5) 11/21/16 06:20 Plt Count 201 K/uL (130-400) 11/21/16 06:20 MPV 10.1 fL (7.2-11.7) 11/21/16 06:20 Neut % (Auto) 64.6 % (50.0-75.0) 11/21/16 06:20 Lymph % (Auto) 24.2 % (20.0-40.0) 11/21/16 06:20 [place] % (Auto) 8.3 % (0.0-10.0) 11/21/16 06:20 Eos % (Auto) 2.2 % (0.0-4.0) 11/21/16 06:20 Baso % (Auto) 0.7 % (0.0-2.0) 11/21/16 06:20 Neut # 5.1 K/uL (1.8-7.0) 11/21/16 06:20 Lymph # 1.9 K/uL (1.0-4.3) 11/21/16 06:20 [place] # 0.7 K/uL (0.0-0.8) 11/21/16 06:20 Eos # 0.2 K/uL (0.0-0.7) 11/21/16 06:20 Baso # 0.1 K/uL (0.0-0.2) 11/21/16 06:20 PT 11.0 SECONDS (9.7-12.2) 11/21/16 06:20 INR 1.0 11/21/16 06:20 APTT 37 SECONDS (21-34) H 11/21/16 06:20 Sodium 141 mmol/L (132-148) 11/21/16 06:20 Potassium 4.2 mmol/L (3.6-5.2) 11/21/16 06:20 Chloride 102 mmol/L (98-107) 11/21/16 06:20 Carbon Dioxide 24 mmol/L (22-30) 11/21/16 06:20 Anion Gap 19 (10-20) 11/21/16 06:20 BUN 15 mg/dL (9-20) 11/21/16 06:20 Creatinine 0.7 MG/DL (0.8-1.5) L 11/21/16 06:20 Est GFR ( Amer) > 60 11/21/16 06:20 Est GFR (Non-Af Amer) > 60 11/21/16 06:20 Random Glucose 88 mg/dL (75-110) 11/21/16 06:20 Hemoglobin A1c 3.8 % (4.2-6.5) L 11/18/16 03:59 Calcium 8.2 mg/dl (8.6-10.4) L 11/21/16 06:20 Phosphorus 3.9 mg/dL (2.5-4.5) 11/21/16 06:20 Magnesium 1.9 mg/dL (1.6-2.3) 11/21/16 06:20 Total Bilirubin 0.7 mg/dL (0.2-1.3) 11/21/16 06:20 AST 56 U/L (17-59) 11/21/16 06:20 ALT 73 U/L (21-72) H D 11/21/16 06:20 Alkaline Phosphatase 38 U/L (38-126) 11/21/16 06:20 Total Creatine Kinase 86 U/L (55-170) 11/18/16 16:54 CK-MB (Mass) 0.68 ng/mL (0.0-3.38) 11/18/16 16:54 Troponin I 0.0250 ng/mL (0.00-0.120) 11/17/16 21:17 Troponin I, Quant 0.0150 ng/mL (0.00-0.120) 11/18/16 16:54 NT-Pro-B Natriuret Pep 44.9 pg/mL (0-450) 11/17/16 21:17 Total Protein 6.7 g/dL (6.3-8.3) 11/21/16 06:20 Albumin 3.9 g/dL (3.5-5.0) 11/21/16 06:20 Globulin 2.8 gm/dL (2.2-3.9) 11/21/16 06:20 Albumin/Globulin Ratio 1.4 (1.0-2.1) 11/21/16 06:20 Triglycerides 106 mg/dL (0-149) 11/18/16 03:59 Cholesterol 194 mg/dL (0-199) 11/18/16 03:59 LDL Cholesterol Direct 129 mg/dL (0-129) 11/18/16 03:59 HDL Cholesterol 39 mg/dL (30-70) 11/18/16 03:59 TSH 3rd Generation 1.38 mIU/L (0.46-4.68) 11/18/16 03:59 Urine Opiates Screen Negative (NEGATIVE) 11/18/16 19:10 Urine Methadone Screen Negative (NEGATIVE) 11/18/16 19:10 Ur Barbiturates Screen Negative (NEGATIVE) 11/18/16 19:10 Ur Phencyclidine Scrn Negative (NEGATIVE) 11/18/16 19:10 Ur Amphetamines Screen Negative (NEGATIVE) 11/18/16 19:10 U Benzodiazepines Scrn Negative (NEGATIVE) 11/18/16 19:10 U Oth Cocaine Metabols Positive (NEGATIVE) 11/18/16 19:10 U Cannabinoids Screen Negative (NEGATIVE) 11/18/16 19:10 - Hospital Course Hospital Course: HPI: CC: " chest pain" 46 year old male with PMHx of asthma in adolescence, and cocaine use with last use 1 yr ago, presents to the hospital for chest pain and shortness of breath on exertion. Patient states he was healthy and normal until 10 days ago when he was playing in the park with his daughter and needed to stop secondary to chest pain and SOB. Chest pain and SOB resolved when he sat down to rest. Since then, shortness of breath and chest pain occur every time he walks. He noticed he was able to walk 100 steps before he began to feel SOB, but now he is down to 50 ft. Patient describes chest pain is pressure like, mid sternal, intermittent, alleviated by rest. He is able to lay flat and does not wake up in the middle of the night gasping for air. He also reports associated left UE cramping. He took 2 tabs of his mother's hydrocodone, with no relied. Admits to Hx of cocaine and marijuana use, with last use 1 year ago. Denies cough, wheezing, fevers, chills, nausea, vomiting, diarrhea, constipation. PMHx: asthma as an adolescent Medications: none Social Hx: smokes 1ppd for 15 years, stopped 10 days ago. Admits to cocaine and marijuana use 1 year ago. Denies alcohol use. Family Hx: mother with DM, HTN. Father with heroin addiction. Allergies: shrimp Surg Hx: appendectomy. PMD: none During hospital course, the following imaging was done: CXR (11/17/16): No active disease. See full report. EKG (11/18/16): Normal sinus rhythm at rate of 66. Echocardiogram (11/18/16): Left ventricle thickness - upper limit of normal; size : normal overall ejection fraction 65%. Diastolic filling pressures borderline elevated. No valvular disease. Pulmonary systolic pressure 40. No pericardial effusion. Patient was admitted to telemetry. Troponin was found to be 0.0250. 0.0150 and 0.0180. EKG was normal sinus rhythm at rate of 66. UDS revealed patient had recently used cocaine. Echocardiogram revealed ejection fraction of 65% and normal valvular disease. Patient was started on aspirin 81 mg po BID, Lisinopril 2.5 mg po daily, Crestor 2.5 mg po HS, and Heparin drip. Heparin was held as patient went for cardiac catheterization with Dr. Hyaward which revealed severe distal LM, ostial LAD, ostial LCX, mid LCX and mid RCA disease as well as calcific stenosis. Patient was transferred for CABG to [facility] on heparin, aspirin, crestor and lisinopril. Cardiology also recommended to initiate beta perry. Please note this is a summary of the hospital course. For full report, please see patient chart. - Date & Time of H&P Date of H&P: 11/18/16 Time of H&P: 01:13 Discharge Exam - Head Exam Head Exam: ATRAUMATIC, NORMAL INSPECTION, NORMOCEPHALIC - Eye Exam Eye Exam: EOMI, Normal appearance, PERRL - Respiratory Exam Respiratory Exam: NORMAL BREATHING PATTERN, UNREMARKABLE - Cardiovascular Exam Cardiovascular Exam: +S1, +S2. absent: Tachycardia, JVD - GI/Abdominal Exam GI & Abdominal Exam: Normal Bowel Sounds, Unremarkable. absent: Distended, Firm - Extremities Exam Extremities exam: normal inspection - Neurological Exam Neurological exam: Alert, CN II-XII Intact, Oriented x3 - Psychiatric Exam Psychiatric exam: Normal Affect, Normal Mood - Skin Skin Exam: Intact, Normal Color, Warm Discharge Plan - Follow Up Plan Condition: FAIR Disposition: Trans to Other Acute Care Hosp Additional Instructions: Patient transferred to [facility] for CABG. Will continue heparin drip, aspirin 81 mg po daily, crestor 2.5 mg po HS and lisinopril 2.5 mg po daily. <Svetlana Sierra V - Last Filed: 11/21/16 23:09> Provider - Provider Date of Admission: 11/19/16 18:22 Attending physician: Balta Dahl MD Hospital Course - Lab Results Lab Results: Most Recent Lab Values WBC 8.0 K/uL (4.8-10.8) 11/21/16 06:20 RBC 4.42 Mil/uL (4.40-5.90) 11/21/16 06:20 Hgb 14.0 g/dL (12.0-18.0) 11/21/16 06:20 Hct 41.3 % (35.0-51.0) 11/21/16 06:20 MCV 93.6 fL (80.0-94.0) 11/21/16 06:20 MCH 31.7 pg (27.0-31.0) H 11/21/16 06:20 MCHC 33.8 g/dL (33.0-37.0) 11/21/16 06:20 RDW 12.6 % (11.5-14.5) 11/21/16 06:20 Plt Count 201 K/uL (130-400) 11/21/16 06:20 MPV 10.1 fL (7.2-11.7) 11/21/16 06:20 Neut % (Auto) 64.6 % (50.0-75.0) 11/21/16 06:20 Lymph % (Auto) 24.2 % (20.0-40.0) 11/21/16 06:20 [place] % (Auto) 8.3 % (0.0-10.0) 11/21/16 06:20 Eos % (Auto) 2.2 % (0.0-4.0) 11/21/16 06:20 Baso % (Auto) 0.7 % (0.0-2.0) 11/21/16 06:20 Neut # 5.1 K/uL (1.8-7.0) 11/21/16 06:20 Lymph # 1.9 K/uL (1.0-4.3) 11/21/16 06:20 [place] # 0.7 K/uL (0.0-0.8) 11/21/16 06:20 Eos # 0.2 K/uL (0.0-0.7) 11/21/16 06:20 Baso # 0.1 K/uL (0.0-0.2) 11/21/16 06:20 PT 11.0 SECONDS (9.7-12.2) 11/21/16 06:20 INR 1.0 11/21/16 06:20 APTT 37 SECONDS (21-34) H 11/21/16 06:20 Sodium 141 mmol/L (132-148) 11/21/16 06:20 Potassium 4.2 mmol/L (3.6-5.2) 11/21/16 06:20 Chloride 102 mmol/L (98-107) 11/21/16 06:20 Carbon Dioxide 24 mmol/L (22-30) 11/21/16 06:20 Anion Gap 19 (10-20) 11/21/16 06:20 BUN 15 mg/dL (9-20) 11/21/16 06:20 Creatinine 0.7 MG/DL (0.8-1.5) L 11/21/16 06:20 Est GFR ( Amer) > 60 11/21/16 06:20 Est GFR (Non-Af Amer) > 60 11/21/16 06:20 Random Glucose 88 mg/dL (75-110) 11/21/16 06:20 Hemoglobin A1c 3.8 % (4.2-6.5) L 11/18/16 03:59 Calcium 8.2 mg/dl (8.6-10.4) L 11/21/16 06:20 Phosphorus 3.9 mg/dL (2.5-4.5) 11/21/16 06:20 Magnesium 1.9 mg/dL (1.6-2.3) 11/21/16 06:20 Total Bilirubin 0.7 mg/dL (0.2-1.3) 11/21/16 06:20 AST 56 U/L (17-59) 11/21/16 06:20 ALT 73 U/L (21-72) H D 11/21/16 06:20 Alkaline Phosphatase 38 U/L (38-126) 11/21/16 06:20 Total Creatine Kinase 86 U/L (55-170) 11/18/16 16:54 CK-MB (Mass) 0.68 ng/mL (0.0-3.38) 11/18/16 16:54 Troponin I 0.0250 ng/mL (0.00-0.120) 11/17/16 21:17 Troponin I, Quant 0.0150 ng/mL (0.00-0.120) 11/18/16 16:54 NT-Pro-B Natriuret Pep 44.9 pg/mL (0-450) 11/17/16 21:17 Total Protein 6.7 g/dL (6.3-8.3) 11/21/16 06:20 Albumin 3.9 g/dL (3.5-5.0) 11/21/16 06:20 Globulin 2.8 gm/dL (2.2-3.9) 11/21/16 06:20 Albumin/Globulin Ratio 1.4 (1.0-2.1) 11/21/16 06:20 Triglycerides 106 mg/dL (0-149) 11/18/16 03:59 Cholesterol 194 mg/dL (0-199) 11/18/16 03:59 LDL Cholesterol Direct 129 mg/dL (0-129) 11/18/16 03:59 HDL Cholesterol 39 mg/dL (30-70) 11/18/16 03:59 TSH 3rd Generation 1.38 mIU/L (0.46-4.68) 11/18/16 03:59 Urine Opiates Screen Negative (NEGATIVE) 11/18/16 19:10 Urine Methadone Screen Negative (NEGATIVE) 11/18/16 19:10 Ur Barbiturates Screen Negative (NEGATIVE) 11/18/16 19:10 Ur Phencyclidine Scrn Negative (NEGATIVE) 11/18/16 19:10 Ur Amphetamines Screen Negative (NEGATIVE) 11/18/16 19:10 U Benzodiazepines Scrn Negative (NEGATIVE) 11/18/16 19:10 U Oth Cocaine Metabols Positive (NEGATIVE) 11/18/16 19:10 U Cannabinoids Screen Negative (NEGATIVE) 11/18/16 19:10 Attending/Attestation - Attestation I have personally seen and examined this patient.: Yes I have fully participated in the care of the patient.: Yes I have reviewed all pertinent clinical information, including history, physical exam and plan: Yes Notes (Text): Patient case discussed with day-time resident and discussed with ICU. Patient underwent cardiac catherization this morning; found to have severe triple vessel disease prompting for CABG; arrangements by building illuminating engineer for CABG at [facility] accepted under Dr. Neves. Patient transferred to [facility] per discretion of building illuminating engineer from saw[facility] [employer] slabs prior to my arrival. This is a summary of patient's hospitalization. Please review full body of EMR for further details.
--- NOTE | 2016-11-21 12:23 | CARD ---
APPROVED REPORT EKG Measurement Heart [id number] <Conclusion> Normal sinus rhythm Normal ECG
== END 2016-11-21 13:00 | disposition short-term general hospital (02) | DRG 125 ==
LOC: C.ER 20:32 → C.9E 22:48 → C.6T 23:38 → OBSVTOIN 11-19 18:22 → C.9I 11-21 09:54
PROVIDERS: ADMIT Internal Medicine; ATTEND Internal Medicine
PROC: 4A023N7 Measurement of Cardiac Sampling and Pressure, Left Heart, Percutaneous Approach (ICD-10-PCS; principal; 2016-11-21)
PROC: B2151ZZ Fluoroscopy of Left Heart using Low Osmolar Contrast (ICD-10-PCS; 2016-11-21)
PROC: B2111ZZ Fluoroscopy of Multiple Coronary Arteries using Low Osmolar Contrast (ICD-10-PCS; 2016-11-21)
DX: I25.118 Atherosclerotic heart disease of native coronary artery with other forms of angina pectoris (principal); F14.10 Cocaine abuse, uncomplicated; R06.00 Dyspnea, unspecified; J45.909 Unspecified asthma, uncomplicated; F17.210 Nicotine dependence, cigarettes, uncomplicated

== ENCOUNTER 2016-12-05 09:56 | Emergency (ER) | payer MEDICAID, OTHER ==
[2016-12-05 10:05] VITALS: O2SAT 98
[2016-12-05] MEDS ORDERED: Oxycodone/Acetaminophen 5/325 mg Tab PO STA (11:16)
[2016-12-05 11:26] LABS: BASO # 0.1 K/uL (0.0-0.2); BASO % 1.1 % (0.0-2.0); EOS # 0.2 K/uL (0.0-0.7); EOS % 1.6 % (0.0-4.0); HEMATOCRIT 34.2 % (35.0-51.0); LYMPH # 1.6 K/uL (1.0-4.3); LYMPH % 13.9 % (20.0-40.0); MEAN CELL VOLUME 94.7 fL (80.0-94.0); MEAN CORPUSCULAR HEMOGLOBIN 31.4 pg (27.0-31.0); MEAN CORPUSCULAR HGB CONC 33.1 g/dL (33.0-37.0); MEAN PLATELET VOLUME 7.9 fL (7.2-11.7); MONO # 0.7 K/uL (0.0-0.8); MONO % 5.8 % (0.0-10.0); RED CELL DISTRIBUTION WIDTH 12.9 % (11.5-14.5); WHITE BLOOD COUNT 11.3 K/uL (4.8-10.8)
--- NOTE | 2016-12-05 11:28 | C.PDOC ---
History Of Present Illness 46-year-old male, presents to the emergency department s/p CABG at [facility] on 11/23 with complaints of mid sternal chest pain from incision site. Patient reports he was admitted to [facility] then sent to [facility] for heart surgery and discharged on 11/27. He has follow up with Dr Neves on 12/09. Patient was given Rx for Tramadol, that he is taking without relief. Patient states he was given Morphine and Percocet when he was admitted and that helped his pain. Patient reports that he called the doctor, but did not get a response regarding the medication and therefore came to ED. Denies shortness of breath, numbness/ weakness, or any other associated symptoms. No other complaints at this time. Upon further questioning, patient has history of cocaine and marijuana use, with last use 1 year ago. Time Seen by Provider: 12/05/16 10:58 Chief Complaint (Nursing): Chest Pain History Per: Patient History/Exam Limitations: no limitations Onset/Duration Of Symptoms: Days Current Symptoms Are (Timing): Still Present Severity: Moderate Past Medical History Reviewed: Historical Data, Nursing Documentation, Vital Signs Vital Signs: Last Vital Signs Temp 97.5 F L 12/05/16 12:48 Pulse 86 12/05/16 12:48 Resp 20 12/05/16 12:48 BP 125/86 12/05/16 12:48 Pulse Ox 98 12/05/16 12:48 - Medical History PMH: Anxiety, Asthma (" When I was young") Surgical History: Appendectomy - [facility] Procedures FLUOROSCOPY OF LEFT HEART USING LOW OSMOLAR CONTRAST (11/19/16) FLUOROSCOPY OF MULT COR ART USING L OSM CONTRAST (11/19/16) MEASURE OF CARDIAC SAMPL & PRESSURE, L HEART, PERC APPROACH (11/19/16) Family History: States: Diabetes - Social History Hx Tobacco Use: Yes Hx Alcohol Use: No Hx Substance Use: No - Immunization History Hx Tetanus Toxoid Vaccination: No Hx Influenza Vaccination: No Hx Pneumococcal Vaccination: No Review Of Systems Constitutional: Negative for: Fever, Chills, Weakness, Malaise Cardiovascular: Positive for: Chest Pain Respiratory: Negative for: Shortness of Breath Gastrointestinal: Negative for: Nausea, Vomiting Skin: Negative for: Rash Neurological: Negative for: Weakness, Numbness, Headache, Dizziness Physical Exam - Physical Exam Appears: Non-toxic, No Acute Distress Skin: Warm, Dry, No Diaphoretic, No Rash, No Ecchymosis Head: Atraumatic, Normacephalic Eye(s): bilateral: Normal Inspection, EOMI Nose: Normal Oral Mucosa: Moist Lips: Normal Appearing Neck: Normal ROM Chest: Other (Mid-sternal incision wound, mild associated tenderness. No swelling, dehiscence, or erythema.) Cardiovascular: Rhythm Regular Respiratory: Normal Breath Sounds, No Accessory Muscle Use Extremity: Normal ROM Neurological/Psych: Oriented x3, Normal Speech Gait: Steady ED Course And Treatment - Laboratory Results Result Diagrams: 12/05/16 11:22 12/05/16 11:22 Lab Interpretation: No Acute Changes ECG: Interpreted By Me, Viewed By Me ECG Rhythm: Sinus Rhythm ECG Interpretation: No Acute Changes Rate From EC O2 Sat by Pulse Oximetry: 98 Medical Decision Making Medical Decision Making: Impression 46y/o M s/p CABG comes in w/ pain to incision site Prior records reviewed: Patient admitted for chest pain 11/19/16, during hospital stay, cardiac catherization showed severe triple vessel disease prompting for CABG; arrangements by gambreler helper for CABG at [facility] accepted under Dr. Neves. Patient transferred to [facility] 11/21/16 Plan: * CMP, UDS, Trop I * CBC, PTT, PT * Chest X-Ray * Percocet * Urinalysis Progress: Labs reviewed and no acute changes, troponin negative. No acute changes to EKG. Patient remained afebrile with stable vital signs in no acute distress. On reexamination, patient reports pain is improving. No acute changes on EKG or signs of infection. Will contact CT surgeon and professor of latin american studies. 12:08 Attempted to contact Freddy Boyd. Phone answered by sales secretary, who states she will inform Dr. Hayward to call back. 12:[address] Hayward. 12:11 Case discussed with Nurse Practitioner Inge who states patient can follow up with Dr Neves in the office tomorrow morning. 12:[address] Hayward who states he was covering Dr Livia Muñoz at that time, however he states if stable can follow up with Dr Neves Patient remained hemodynamically stable. Explained results and patient agreeable with plan for discharge and will follow up tomorrow Disposition Counseled Patient/Family Regarding: Studies Performed, Diagnosis, Need For Followup - Disposition Referrals: Noah Neves MD [Medical Doctor] - Freddy Hayward MD [Staff Provider] - Disposition: HOME/ ROUTINE Disposition Time: 12:22 Condition: STABLE Additional Instructions: Please follow up with your CT surgeon Dr Neves in the office tomorrow morning Follow up with your cardiologst as scheduled Instructions: Chest Pain (DC) - POA Present On Arrival: None - Clinical Impression Clinical Impression: Pain following surgery or procedure, Triple vessel disease of the heart - Scribe Statement The provider has reviewed the documentation as recorded by the Jose Libasad Davidson All medical record entries made by the Jose Libasad were at my direction and personally dictated by me. I have reviewed the chart and agree that the record accurately reflects my personal performance of the history, physical exam, medical decision making, and the department course for this patient. I have also personally directed, reviewed, and agree with the discharge instructions and disposition.
[2016-12-05 11:31] LABS: PLATELET COUNT 508 K/uL (130-400)
[2016-12-05 11:33] LABS: CHLORIDE 102 mmol/L (98-107); SODIUM 140 mmol/L (132-148)
[2016-12-05 11:34] LABS: POTASSIUM 4.6 mmol/L (3.6-5.2)
[2016-12-05 11:36] LABS: ALB/GLOB RATIO 1.3 (1.0-2.1); AST/SGOT 21 U/L (17-59); BILIRUBIN,TOTAL 0.3 mg/dL (0.2-1.3); BLOOD UREA NITROGEN 18 mg/dL (9-20); CARBON DIOXIDE 27 mmol/L (22-30); GFR AFRICAN-AMERICAN > 60; GLUCOSE,RANDOM 94 mg/dL (75-110); TOTAL PROTEIN 7.7 g/dL (6.3-8.3)
[2016-12-05 11:37] LABS: ALKALINE PHOSPHATASE 53 U/L (38-126); ALT/SGPT 26 U/L (21-72); CALCIUM 9.4 mg/dl (8.6-10.4)
[2016-12-05 11:40] LABS: INR 1.2
--- NOTE | 2016-12-05 11:55 | RAD ---
PROCEDURE: CHEST RADIOGRAPH, 1 VIEW HISTORY: pain to chest s.p CABG COMPARISON: 11/17/2016 FINDINGS: LUNGS: Hazy opacity in the left lung base. Linear atelectatic changes in the right middle lobe. PLEURA: Possible small left-sided pleural effusion. CARDIOVASCULAR: Enlarged heart. OSSEOUS STRUCTURES: The osseous structures demonstrate degenerative changes. VISUALIZED UPPER ABDOMEN: Upper abdomen is suboptimally evaluated. OTHER FINDINGS: Midline sternotomy wires and surgical clips along the left heart border noted. IMPRESSION: Hazy opacity in the left lung base which could represent a small left-sided pleural effusion with associated compressive atelectasis and/or pneumonia.
[2016-12-05] MEDS ORDERED: Oxycodone/Acetaminophen 5/325 mg Tab ONE (11:56)
[2016-12-05 12:07] LABS: EOSINOPHIL 3 % (0-4); MYELOCYTE 1 % (0-0); NEUTROPHIL 72 % (50-75); TOTAL CELLS COUNTED 100
[2016-12-05 12:50] VITALS: BP 125/86; PULSE 86; RESP 20; TEMP 97.5
== END 2016-12-05 12:48 | disposition home or self-care (01) ==
LOC: C.ER 09:56
DX: G89.18 Other acute postprocedural pain (principal); I25.10 Atherosclerotic heart disease of native coronary artery without angina pectoris; Z72.0 Tobacco use

== ENCOUNTER 2017-11-20 18:29 | Inpatient (IN) | payer MEDICAID, OTHER ==
[2017-11-20] MEDS ORDERED: Aspirin 325 mg EC Tablets PO STA (19:37)
--- NOTE | 2017-11-20 19:37 | C.PDOC ---
History Of Present Illness 47 year old male presents to the ED complaining of chest pain since yesterday. He denies any fever, chills, nausea, vomiting, or SOB. Pain is non-radiating. Of note, patient has a history of myocardial infarction and is s/p CABG. Time Seen by Provider: 11/20/17 19:36 Chief Complaint (Nursing): Chest Pain History Per: Patient History/Exam Limitations: no limitations Onset/Duration Of Symptoms: Days (x2) Current Symptoms Are (Timing): Still Present Context: Other Severity: Mild Pain Scale Rating Of: 4 Quality: Pressure, "Pain" Modifying Factors: None Exacerbating Factors: None Alleviating Factors: None Recent travel outside of the [place]: No Additional History Per: Family Past Medical History Reviewed: Historical Data, Nursing Documentation, Vital Signs Vital Signs: Last Vital Signs Temp 98.2 F 11/20/17 21:18 Pulse 75 11/20/17 21:18 Resp 18 11/20/17 21:18 BP 106/76 11/20/17 21:18 Pulse Ox 98 11/20/17 21:18 - Medical History PMH: AMI-NSTEMI, Anxiety, Asthma (" When I was young"), CAD Denies: Chronic Kidney Disease Surgical History: Appendectomy, CABG - [facility] Procedures FLUOROSCOPY OF LEFT HEART USING LOW OSMOLAR CONTRAST (11/19/16) FLUOROSCOPY OF MULT COR ART USING L OSM CONTRAST (11/19/16) MEASURE OF CARDIAC SAMPL & PRESSURE, L HEART, PERC APPROACH (11/19/16) Family History: States: Diabetes - Social History Hx Tobacco Use: Yes Hx Alcohol Use: No Hx Substance Use: No - Immunization History Hx Tetanus Toxoid Vaccination: No Hx Influenza Vaccination: No Hx Pneumococcal Vaccination: No Review Of Systems Constitutional: Negative for: Fever, Chills Eyes: Negative for: Vision Change Cardiovascular: Positive for: Chest Pain Respiratory: Negative for: Shortness of Breath Gastrointestinal: Negative for: Nausea, Vomiting Genitourinary: Negative for: Dysuria Musculoskeletal: Negative for: Back Pain Skin: Negative for: Rash Neurological: Negative for: Weakness Psych: Negative for: Anxiety Physical Exam - Physical Exam Appears: Non-toxic, No Acute Distress Skin: Warm, Dry Head: Normacephalic Eye(s): bilateral: Normal Inspection Oral Mucosa: Moist Neck: Supple Chest: Symmetrical, No Tenderness, Other (CABG scar noted) Cardiovascular: Rhythm Regular Respiratory: No Rales, No Rhonchi, No Wheezing Gastrointestinal/Abdominal: Soft, No Tenderness, No Distention Extremity: Bilateral: Atraumatic, Normal Color And Temperature, Normal ROM Pulses: Left Dorsalis Pedis: Normal, Right Dorsalis Pedis: Normal Neurological/Psych: Oriented x3 Gait: Steady ED Course And Treatment - Laboratory Results Result Diagrams: 11/20/17 20:04 11/20/17 20:04 ECG: Interpreted By Me, Viewed By Me ECG Rhythm: Sinus Rhythm (82), Nonspecific Changes O2 Sat by Pulse Oximetry: 95 Pulse Ox Interpretation: Normal - Radiology CXR: Interpreted by Me, Viewed By Me CXR Interpretation: Yes: Other (mild chf, cabg). No: Infiltrates, Fracture, Pnemothorax Progress Note: Ordered labs with cardiac enzymes, EKG, and Chest x-ray. Patient given 325 mg Aspirin PO Disposition Discussed With : Uriel Garcia Comment: accepted the pt on his service and took over the care at 9:52 PM Doctor Will See Patient In The: ED Counseled Patient/Family Regarding: Studies Performed, Diagnosis - Disposition Disposition: HOSPITALIZED Disposition Time: 21:52 Condition: FAIR Forms: [employer] ([place]raqi) - Clinical Impression Clinical Impression: Chest pain - Scribe Statement The provider has reviewed the documentation as recorded by the Sabrina Mendenhall Provider Attestation: All medical record entries made by the Jose Libasad were at my direction and personally dictated by me. I have reviewed the chart and agree that the record accurately reflects my personal performance of the history, physical exam, medical decision making, and the department course for this patient. I have also personally directed, reviewed, and agree with the discharge instructions and disposition. Decision To Admit - Pt Status Changed To: Hospital Disposition Of: Inpatient - Admit Certification Admit to Inpatient:: After my assessment, the patient will require hospitalization for at least two midnights. This is because of the severity of symptoms shown, intensity of services needed, and/or the medical risk in this patient being treated as an outpatient. - InPatient: Physician Admission Certification: I certify that this patient requires 2 or more midnights of care for the following reason:: After my assessment, the patient will require hospitalization for at least two midnights. This is because of the severity of symptoms shown, intensity of services needed, and/or the medical risk in this patient being treated as an outpatient. - . Bed Request Type: Telemetry Patient Diagnosis: Chest pain
[2017-11-20] MEDS ORDERED: Aspirin 325 mg EC Tablets PO ONE (19:59)
[2017-11-20 20:08] LABS: BASO # 0.1 K/uL (0.0-0.2); BASO % 0.8 % (0.0-2.0); EOS # 0.1 K/uL (0.0-0.7); EOS % 2.1 % (0.0-4.0); LYMPH # 1.6 K/uL (1.0-4.3); LYMPH % 23.4 % (20.0-40.0); MEAN CELL VOLUME 94.5 fL (80.0-94.0); MEAN CORPUSCULAR HEMOGLOBIN 32.6 pg (27.0-31.0); MEAN CORPUSCULAR HGB CONC 34.5 g/dL (33.0-37.0); MEAN PLATELET VOLUME 9.9 fL (7.2-11.7); MONO # 0.6 K/uL (0.0-0.8); MONO % 9.1 % (0.0-10.0); NEUT # 4.6 K/uL (1.8-7.0); NEUT % 64.6 % (50.0-75.0); NRBC % 0.1 % (0.0-2.0); RBC 4.45 Mil/uL (4.40-5.90); RED CELL DISTRIBUTION WIDTH 12.7 % (11.5-14.5)
[2017-11-20 20:09] LABS: HEMOGLOBIN 14.5 g/dL (12.0-18.0)
[2017-11-20 20:11] LABS: SQUAMOUS EPITHIAL < 1 /hpf (0-5); URINE BACTERIA OCC (<OCC); URINE BILIRUBIN NEGATIVE (NEGATIVE); URINE BLOOD NEGATIVE (NEGATIVE); URINE CLARITY Clear (Clear); URINE COLOR Yellow (YELLOW); URINE GLUCOSE (UA) NORMAL (Normal); URINE LEUKOCYTE ESTERASE NEG Leu/uL (Negative); URINE PROTEIN NEGATIVE (NEGATIVE); URINE UROBILINOGEN NORMAL mg/dL (0.2-1.0)
[2017-11-20 20:19] LABS: ALB/GLOB RATIO 1.2 (1.0-2.1); ALBUMIN 4.2 g/dL (3.5-5.0); ALT/SGPT 50 U/L (21-72); AST/SGOT 41 U/L (17-59); BLOOD UREA NITROGEN 15 mg/dL (9-20); CALCIUM 9.2 mg/dl (8.6-10.4); GFR AFRICAN-AMERICAN > 60; GFR NON-AFRICAN AMERICAN > 60
[2017-11-20 20:26] LABS: PROTHROMBIN TIME 10.8 SECONDS (9.7-12.2)
--- NOTE | 2017-11-20 23:04 | CP.PCM.HP ---
<Talita Wan - Last Filed: 11/21/17 01:41> History of Present Illness - History of Present Illness History of Present Illness: CC: Chest pain 47 year old male with past medical history of HTN and CAD s/p CABG presents to [facility] ED today complains left sided chest pain. Patient reports the chest pain started suddenly yesterday afternoon while he was sitting at home watching TV. Patient describes the pain as tightness in quality and non radiating. The pain not reproducible and it does not improve with position changes. Patient thought the pain will resolve on its own but it became worse overnight. Patient had CAB[place] done [place] [facility] [place] and a cardiac cath in October 2017. Patient denies having dizziness, chills, diaphoresis, shortness of breath, nausea, or vomiting. Cardiology: Dr. Caban PMHx: childhood asthma, HTN, CAD PSHx: CABG, appendectomy Social Hx: Denies alcohol use, admit to smoking 1ppd for 15 years, stopped 1 year ago. Admits to cocaine and marijuana use 2 year ago Family Hx: mother with DM, HTN. Father with heroin addiction. Allergies: shrimp Present on Admission - Present on Admission Any Indicators Present on Admission: No Review of Systems - Constitutional Constitutional: As Per HPI. absent: Chills, Fever, Lethargy, Weight Loss - EENT Eyes: As Per HPI. absent: Blurred Vision, Change in Vision Ears: As Per HPI. absent: Disequilibrium, Dizziness Nose/Mouth/Throat: As Per HPI. absent: Nasal Congestion, Nose Pain - Cardiovascular Cardiovascular: As Per HPI, Chest Pain, Chest Pain at Rest, Chest Pain with Activity. absent: Diaphoresis - Respiratory Respiratory: As Per HPI. absent: Dyspnea, Hemoptysis - Gastrointestinal Gastrointestinal: As Per HPI. absent: Diarrhea, Nausea, Vomiting - Genitourinary Genitourinary: As Per HPI. absent: Pyuria, Urinary Frequency, Urinary Hesitance - Reproductive: Male Reproductive:Male: As Per HPI - Musculoskeletal Musculoskeletal: As Per HPI. absent: Back Pain, Deformity - Integumentary Integumentary: As Per HPI. absent: Acne, Dry Skin - Neurological Neurological: As Per HPI. absent: Dizziness, Numbness, Syncope, Tingling - Psychiatric Psychiatric: As Per HPI. absent: Anxiety, Confusion, Depression - Endocrine Endocrine: As Per HPI - Hematologic/Lymphatic Hematologic: As Per HPI Past Patient History - Infectious Disease Hx of Infectious Diseases: None - Past Medical History & Family History Past Medical History?: Yes - Past Social History Smoking Status: Former Smoker - CARDIAC Hx Cardiac Disorders: Yes Hx Heart Attack: Yes - PULMONARY Hx Asthma: Yes (" When I was young") - NEUROLOGICAL Hx Neurological Disorder: No - HEENT Hx HEENT Problems: No - RENAL Hx Chronic Kidney Disease: No - ENDOCRINE/METABOLIC Hx Endocrine Disorders: No - HEMATOLOGICAL/ONCOLOGICAL Hx Blood Disorders: No - INTEGUMENTARY Hx Dermatological Problems: No - MUSCULOSKELETAL/RHEUMATOLOGICAL Hx Musculoskeletal Disorders: No Hx Falls: No - GASTROINTESTINAL Hx Gastrointestinal Disorders: No - GENITOURINARY/GYNECOLOGICAL Hx Genitourinary Disorders: No - PSYCHIATRIC Hx Anxiety: Yes Hx Substance Use: No - SURGICAL HISTORY Hx Appendectomy: Yes Hx Coronary Artery Bypass Graft: Yes - ANESTHESIA Hx Anesthesia: Yes Hx Anesthesia Reactions: No Hx Malignant Hyperthermia: No Meds Allergies/Adverse Reactions: Allergies Allergy/AdvReac Type Severity Reaction Status Date / Time shellfish derived Allergy Verified 12/05/16 10:07 Physical Exam - Constitutional Appears: Non-toxic, No Acute Distress - Head Exam Head Exam: ATRAUMATIC, NORMOCEPHALIC - Eye Exam Eye Exam: EOMI, Normal appearance - ENT Exam ENT Exam: Mucous Membranes Moist - Neck Exam Neck exam: Positive for: Normal Inspection - Respiratory Exam Respiratory Exam: Clear to Auscultation Bilateral, NORMAL BREATHING PATTERN. absent: Respiratory Distress - Cardiovascular Exam Cardiovascular Exam: REGULAR RHYTHM, +S1, +S2 - GI/Abdominal Exam GI & Abdominal Exam: Normal Bowel Sounds, Soft. absent: Tenderness - Extremities Exam Extremities exam: Positive for: normal inspection. Negative for: pedal edema, tenderness - Neurological Exam Neurological exam: Alert, Oriented x3 - Psychiatric Exam Psychiatric exam: Normal Affect, Normal Mood - Skin Skin Exam: Dry, Warm Additional comments: surgical scar from CABG Results - Vital Signs Recent Vital Signs: Last Vital Signs Temp 98.2 F 11/20/17 21:18 Pulse 75 11/20/17 21:18 Resp 18 11/20/17 21:18 BP 106/76 11/20/17 21:18 Pulse Ox 95 11/20/17 21:53 - Labs Result Diagrams: 11/20/17 20:04 11/20/17 20:04 Labs: Laboratory Results - last 24 hr 11/20/17 11/20/17 11/20/17 20:04 20:04 20:04 WBC 7.0 RBC 4.45 Hgb 14.5 D Hct 42.0 MCV 94.5 H MCH 32.6 H MCHC 34.5 RDW 12.7 Plt Count 231 D MPV 9.9 Neut % (Auto) 64.6 Lymph % (Auto) 23.4 [place] % (Auto) 9.1 Eos % (Auto) 2.1 Baso % (Auto) 0.8 Neut # (Auto) 4.6 Lymph # (Auto) 1.6 [place] # (Auto) 0.6 Eos # (Auto) 0.1 Baso # (Auto) 0.1 PT 10.8 INR 1.0 APTT 28 Sodium Potassium Chloride Carbon Dioxide Anion Gap BUN Creatinine Est GFR ( Amer) Est GFR (Non-Af Amer) Random Glucose Calcium Total Bilirubin AST ALT Alkaline Phosphatase Troponin I Total Protein Albumin Globulin Albumin/Globulin Ratio Urine Color Yellow Urine Clarity Clear Urine pH 5.0 Ur Specific [place] 1.016 Urine Protein Negative Urine Glucose (UA) Normal Urine Ketones Negative Urine Blood Negative Urine Nitrate Negative Urine Bilirubin Negative Urine Urobilinogen Normal Ur Leukocyte Esterase Neg Urine WBC (Auto) 4 Ur Squamous Epith Cells < 1 Urine Bacteria Occ H 11/20/17 20:04 WBC RBC Hgb Hct MCV MCH MCHC RDW Plt Count MPV Neut % (Auto) Lymph % (Auto) [place] % (Auto) Eos % (Auto) Baso % (Auto) Neut # (Auto) Lymph # (Auto) [place] # (Auto) Eos # (Auto) Baso # (Auto) PT INR APTT Sodium 140 Potassium 3.4 L Chloride 103 Carbon Dioxide 25 Anion Gap 17 BUN 15 Creatinine 1.0 Est GFR ( Amer) > 60 Est GFR (Non-Af Amer) > 60 Random Glucose 106 Calcium 9.2 Total Bilirubin 0.5 AST 41 ALT 50 Alkaline Phosphatase 48 Troponin I < 0.0120 Total Protein 7.5 Albumin 4.2 Globulin 3.3 Albumin/Globulin Ratio 1.2 Urine Color Urine Clarity Urine pH Ur Specific [place] Urine Protein Urine Glucose (UA) Urine Ketones Urine Blood Urine Nitrate Urine Bilirubin Urine Urobilinogen Ur Leukocyte Esterase Urine WBC (Auto) Ur Squamous Epith Cells Urine Bacteria Assessment & Plan - Assessment and Plan (Free Text) Assessment: Chest pain r/o ACS -Tele/obs -Troponin negative, repeats pending x2 -EKG NSR at 82bpm, no acute ST changes -Repeat AM EKG -ASA 81mg -Crestor 5mg -Metoprolol 12.5mg Q12 -Follow up A1c, lipid panel -CUCA score of 2, patient has 8% risk at 14 days of: all-cause mortality, new or recurrent [place], or severe recurrent ischemia requiring urgent revascularization. Hypokalemia -3.4 on admission -KCl given po -Follow up AM lab, supplement as needed Prophylactic measures -Protonix -Lovenox <Uriel Garcia - Last Filed: 11/21/17 06:26> Results - Vital Signs Recent Vital Signs: Last Vital Signs Temp 97.4 F L 11/21/17 00:30 Pulse 77 11/21/17 03:16 Resp 20 11/21/17 00:30 BP 127/78 11/21/17 00:30 Pulse Ox 96 11/21/17 00:30 - Labs Result Diagrams: 11/20/17 20:04 11/20/17 20:04 Labs: Laboratory Results - last 24 hr 11/20/17 11/20/17 11/20/17 20:04 20:04 20:04 WBC 7.0 RBC 4.45 Hgb 14.5 D Hct 42.0 MCV 94.5 H MCH 32.6 H MCHC 34.5 RDW 12.7 Plt Count 231 D MPV 9.9 Neut % (Auto) 64.6 Lymph % (Auto) 23.4 [place] % (Auto) 9.1 Eos % (Auto) 2.1 Baso % (Auto) 0.8 Neut # (Auto) 4.6 Lymph # (Auto) 1.6 [place] # (Auto) 0.6 Eos # (Auto) 0.1 Baso # (Auto) 0.1 PT 10.8 INR 1.0 APTT 28 Sodium Potassium Chloride Carbon Dioxide Anion Gap BUN Creatinine Est GFR ( Amer) Est GFR (Non-Af Amer) Random Glucose Calcium Total Bilirubin AST ALT Alkaline Phosphatase Total Creatine Kinase CK-MB (Mass) Troponin I Total Protein Albumin Globulin Albumin/Globulin Ratio Urine Color Yellow Urine Clarity Clear Urine pH 5.0 Ur Specific [place] 1.016 Urine Protein Negative Urine Glucose (UA) Normal Urine Ketones Negative Urine Blood Negative Urine Nitrate Negative Urine Bilirubin Negative Urine Urobilinogen Normal Ur Leukocyte Esterase Neg Urine WBC (Auto) 4 Ur Squamous Epith Cells < 1 Urine Bacteria Occ H 11/20/17 11/21/17 20:04 02:41 WBC RBC Hgb Hct MCV MCH MCHC RDW Plt Count MPV Neut % (Auto) Lymph % (Auto) [place] % (Auto) Eos % (Auto) Baso % (Auto) Neut # (Auto) Lymph # (Auto) [place] # (Auto) Eos # (Auto) Baso # (Auto) PT INR APTT Sodium 140 Potassium 3.4 L Chloride 103 Carbon Dioxide 25 Anion Gap 17 BUN 15 Creatinine 1.0 Est GFR ( Amer) > 60 Est GFR (Non-Af Amer) > 60 Random Glucose 106 Calcium 9.2 Total Bilirubin 0.5 AST 41 ALT 50 Alkaline Phosphatase 48 Total Creatine Kinase 201 H CK-MB (Mass) 2.24 Troponin I < 0.0120 < 0.0120 Total Protein 7.5 Albumin 4.2 Globulin 3.3 Albumin/Globulin Ratio 1.2 Urine Color Urine Clarity Urine pH Ur Specific [place] Urine Protein Urine Glucose (UA) Urine Ketones Urine Blood Urine Nitrate Urine Bilirubin Urine Urobilinogen Ur Leukocyte Esterase Urine WBC (Auto) Ur Squamous Epith Cells Urine Bacteria Assessment & Plan - Date & Time Date: 11/21/17 (I have seen and examined the patient. I agree with the findings and plan of care as documented by Dr. Wan. Patient with chest pain. ROMIx3 with EKG. Aspirin and Statin. Continue home meds. Hypokalemia. Check magnesium. Replete. Monitor for acute changes.) Time: 06:25 Attending/Attestation - Attestation I have personally seen and examined this patient.: Yes I have fully participated in the care of the patient.: Yes I have reviewed all pertinent clinical information: Yes
[2017-11-20] MEDS ORDERED: Potassium Chloride 20 mEq ER Tab PO ONE (23:45)
[2017-11-21 03:09] LABS: CK-MB 2.24 ng/mL (0.0-3.38)
[2017-11-21 07:26] LABS: HDL CHOLESTEROL 43 mg/dL (30-70)
[2017-11-21 07:35] LABS: BASO % 0.8 % (0.0-2.0); EOS # 0.1 K/uL (0.0-0.7); EOS % 2.8 % (0.0-4.0); HEMOGLOBIN 14.5 g/dL (12.0-18.0); LYMPH # 1.6 K/uL (1.0-4.3); MEAN CORPUSCULAR HEMOGLOBIN 33.6 pg (27.0-31.0); MONO # 0.5 K/uL (0.0-0.8); MONO % 9.2 % (0.0-10.0); NEUT % 57.2 % (50.0-75.0); NRBC % 0.1 % (0.0-2.0); RBC 4.32 Mil/uL (4.40-5.90); RED CELL DISTRIBUTION WIDTH 12.8 % (11.5-14.5); WHITE BLOOD COUNT 5.2 K/uL (4.8-10.8)
[2017-11-21 07:38] LABS: CK-MB 1.63 ng/mL (0.0-3.38); LDL CHOLESTEROL 149 mg/dL (0-129); TROPONIN I 0.013 ng/mL (0.00-0.120)
[2017-11-21 07:39] LABS: ALB/GLOB RATIO 1.2 (1.0-2.1); ALBUMIN 3.8 g/dL (3.5-5.0); ALT/SGPT 38 U/L (21-72); AST/SGOT 40 U/L (17-59); BLOOD UREA NITROGEN 16 mg/dL (9-20); CALCIUM 8.9 mg/dl (8.6-10.4); GFR AFRICAN-AMERICAN > 60; GFR NON-AFRICAN AMERICAN > 60
[2017-11-21] MEDS: Enoxaparin 40 mg Syringe SC SCH (09:22)
[2017-11-21] MEDS: Pantoprazole 40 mg EC Tab PO SCH (09:23)
--- NOTE | 2017-11-21 11:21 | RAD ---
PROCEDURE: CHEST RADIOGRAPH, 1 VIEW HISTORY: chest pain COMPARISON: Tech 12/05/2016. None available. FINDINGS: LUNGS: Clear. PLEURA: No pneumothorax or pleural fluid seen. CARDIOVASCULAR: No radiographic findings to suggest acute or significant cardiovascular disease. Incidental Finding(s): Postoperative changes related to sternotomy. OSSEOUS STRUCTURES: No significant abnormalities. VISUALIZED UPPER ABDOMEN: Normal. OTHER FINDINGS: None. IMPRESSION: No active disease. No acute/significant interval changes. Concordant results with the preliminary interpretation rendered by the emergency department physician procedure.
[2017-11-21] MEDS ORDERED: Morphine 4 MG/ML VIAL IVP ONE (12:22)
--- NOTE | 2017-11-21 12:58 | CARD ---
APPROVED REPORT EKG Measurement Heart [id number] 150P3 [id number] <Conclusion> Normal sinus rhythm Nonspecific T wave abnormality Abnormal ECG
--- NOTE | 2017-11-21 14:00 | CP.PCM.PN ---
Subjective - Date & Time of Evaluation Date of Evaluation: 11/21/17 Time of Evaluation: 07:20 - Subjective Subjective: Patient seen and examined at bedside. Patient resting comfortably in bed with no new complaints at this time. Patient is still having a lot of left sided chest pressure and nausea which has not improved much since it started. Patient says it is non radiating however it is reproducible over the left lateral chest wall. Patient denies fever, chills, headache, dizziness, changes in vision, vomiting, diarrhea, constipation, calf pain, and LE swelling. Objective - Vital Signs/Intake and Output Vital Signs (last 24 hours): Temp Pulse Resp BP Pulse Ox 97.4 F L 67 18 106/70 97 11/21/17 07:30 11/21/17 09:00 11/21/17 07:30 11/21/17 07:30 11/21/17 07:30 - Medications Medications: Current Medications Aspirin (Aspirin Chewable) 81 mg PO DAILY [facility] Last Admin: 11/21/17 09:22 Dose: 81 mg Enoxaparin Sodium (Lovenox) 40 mg SC DAILY [facility] Last Admin: 11/21/17 09:22 Dose: 40 mg Ibuprofen (Motrin Tab) 600 mg PO TID PRN PRN Reason: Pain, moderate (4-7) Metoprolol Tartrate (Lopressor) 12.5 mg PO Q12 [facility] Last Admin: 11/21/17 09:22 Dose: 12.5 mg Pantoprazole Sodium (Protonix Ec Tab) 40 mg PO DAILY [facility] Last Admin: 11/21/17 09:23 Dose: 40 mg Rosuvastatin Calcium (Crestor) 10 mg PO [facility] - Labs Labs: 11/21/17 07:00 11/21/17 07:00 PT 10.8 SECONDS (9.7-12.2) 11/20/17 20:04 INR 1.0 11/20/17 20:04 APTT 28 SECONDS (21-34) 11/20/17 20:04 - Constitutional Appears: Non-toxic, No Acute Distress - Head Exam Head Exam: ATRAUMATIC, NORMOCEPHALIC - Eye Exam Eye Exam: EOMI, Normal appearance, PERRL - ENT Exam ENT Exam: Mucous Membranes Moist - Respiratory Exam Respiratory Exam: Chest Wall Tenderness (left sided ), Clear to Ausculation Bilateral, NORMAL BREATHING PATTERN - Cardiovascular Exam Cardiovascular Exam: REGULAR RHYTHM, +S1, +S2 - GI/Abdominal Exam GI & Abdominal Exam: Soft, Normal Bowel Sounds. absent: Tenderness - Extremities Exam Extremities Exam: Normal Inspection. absent: Calf Tenderness, Joint Swelling, Pedal Edema - Neurological Exam Neurological Exam: Alert, Awake, Oriented x3 - Psychiatric Exam Psychiatric exam: Normal Affect, Normal Mood - Skin Skin Exam: Dry, Intact, Normal Color, Warm Assessment and Plan - Assessment and Plan (Free Text) Plan: Disposition: Chest pain likely MSK in nature, as it is reproducible. Will likely discharge tomorrow pending Dr. Prater's recommendations given patient's cardiac risk. Chest pain r/o ACS -Cardiology consulted (Dr. Prater) -Troponin negative x3 -EKGs negative for ACS -ASA 81mg -Crestor 5mg -Metoprolol 12.5mg Q12 -Given 1 dose of morphine for pain -Motrin prn -HbA1c 4.8 -Lipid Panel: Trig 153, Chol 209, LDL 149, HDL 43 -CUCA score of 3 patient has 12% risk at 14 days of: all-cause mortality, new or recurrent [place], or severe recurrent ischemia requiring urgent revascularization. Prophylactic measures -Protonix -Lovenox
[2017-11-21 15:55] VITALS: RESP 20; O2SAT 98
--- NOTE | 2017-11-21 17:08 | CARD ---
APPROVED REPORT EKG Measurement Heart [id number] [place] [id number] [id number] <Conclusion> Normal sinus rhythm Possible Left atrial enlargement Borderline ECG
--- NOTE | 2017-11-22 00:51 | CP.PCM.CON ---
History of Present Illness - History of Present Illness History of Present Illness: Patient stated that he f/us with Dr. Caban as out patient Consult changed to Dr. Caban I will sign off Thank you Past Patient History - Infectious Disease Hx of Infectious Diseases: None - Past Medical History & Family History Past Medical History?: Yes - Past Social History Smoking Status: Former Smoker - CARDIAC Hx Cardiac Disorders: Yes Hx Heart Attack: Yes - PULMONARY Hx Asthma: Yes (" When I was young") - NEUROLOGICAL Hx Neurological Disorder: No - HEENT Hx HEENT Problems: No - RENAL Hx Chronic Kidney Disease: No - ENDOCRINE/METABOLIC Hx Endocrine Disorders: No - HEMATOLOGICAL/ONCOLOGICAL Hx Blood Disorders: No - INTEGUMENTARY Hx Dermatological Problems: No - MUSCULOSKELETAL/RHEUMATOLOGICAL Hx Musculoskeletal Disorders: No Hx Falls: No - GASTROINTESTINAL Hx Gastrointestinal Disorders: No - GENITOURINARY/GYNECOLOGICAL Hx Genitourinary Disorders: No - PSYCHIATRIC Hx Anxiety: Yes Hx Substance Use: No - SURGICAL HISTORY Hx Appendectomy: Yes Hx Coronary Artery Bypass Graft: Yes - ANESTHESIA Hx Anesthesia: Yes Hx Anesthesia Reactions: No Hx Malignant Hyperthermia: No Meds Allergies/Adverse Reactions: Allergies Allergy/AdvReac Type Severity Reaction Status Date / Time shellfish derived Allergy Verified 12/05/16 10:07 - Medications Medications: Current Medications Aspirin (Aspirin Chewable) 81 mg PO DAILY [facility] Last Admin: 11/21/17 09:22 Dose: 81 mg Enoxaparin Sodium (Lovenox) 40 mg SC DAILY [facility] Last Admin: 11/21/17 09:22 Dose: 40 mg Ibuprofen (Motrin Tab) 600 mg PO TID PRN PRN Reason: Pain, moderate (4-7) Last Admin: 11/21/17 20:20 Dose: 600 mg Metoprolol Tartrate (Lopressor) 12.5 mg PO Q12 [facility] Last Admin: 11/21/17 22:00 Dose: 12.5 mg Pantoprazole Sodium (Protonix Ec Tab) 40 mg PO DAILY [facility] Last Admin: 11/21/17 09:23 Dose: 40 mg Rosuvastatin Calcium (Crestor) 10 mg PO HS [facility] Last Admin: 11/21/17 22:00 Dose: 10 mg Results - Vital Signs Recent Vital Signs: Last Vital Signs Temp 97.1 F L 11/21/17 15:54 Pulse 68 11/21/17 16:00 Resp 20 11/21/17 15:54 BP 95/60 L 11/21/17 15:54 Pulse Ox 98 11/21/17 15:54 - Labs Result Diagrams: 11/21/17 07:00 11/21/17 07:00 Labs: Laboratory Results - last 24 hr 11/21/17 11/21/17 11/21/17 02:41 07:00 07:00 WBC RBC Hgb Hct MCV MCH MCHC RDW Plt Count MPV Neut % (Auto) Lymph % (Auto) [place] % (Auto) Eos % (Auto) Baso % (Auto) Neut # (Auto) Lymph # (Auto) [place] # (Auto) Eos # (Auto) Baso # (Auto) Sodium Potassium Chloride Carbon Dioxide Anion Gap BUN Creatinine Est GFR ( Amer) Est GFR (Non-Af Amer) Random Glucose Hemoglobin A1c 4.8 Calcium Total Bilirubin AST ALT Alkaline Phosphatase Total Creatine Kinase 201 H CK-MB (Mass) 2.24 Troponin I < 0.0120 Total Protein Albumin Globulin Albumin/Globulin Ratio Triglycerides 153 H D Cholesterol 209 H LDL Cholesterol Direct 149 H HDL Cholesterol 43 11/21/17 11/21/17 11/21/17 07:00 07:00 07:00 WBC 5.2 RBC 4.32 L Hgb 14.5 Hct 41.4 MCV 96.0 H MCH 33.6 H MCHC 35.0 RDW 12.8 Plt Count 213 MPV 10.0 Neut % (Auto) 57.2 Lymph % (Auto) 30.0 [place] % (Auto) 9.2 Eos % (Auto) 2.8 Baso % (Auto) 0.8 Neut # (Auto) 3.0 Lymph # (Auto) 1.6 [place] # (Auto) 0.5 Eos # (Auto) 0.1 Baso # (Auto) 0.0 Sodium 142 Potassium 4.1 Chloride 106 Carbon Dioxide 23 Anion Gap 17 BUN 16 Creatinine 0.9 Est GFR ( Amer) > 60 Est GFR (Non-Af Amer) > 60 Random Glucose 94 Hemoglobin A1c Calcium 8.9 Total Bilirubin 0.6 AST 40 ALT 38 Alkaline Phosphatase 42 Total Creatine Kinase 164 CK-MB (Mass) 1.63 Troponin I 0.0130 Total Protein 6.9 Albumin 3.8 Globulin 3.1 Albumin/Globulin Ratio 1.2 Triglycerides Cholesterol LDL Cholesterol Direct HDL Cholesterol
[2017-11-22] MEDS ORDERED: Morphine 4 MG/ML VIAL IVP STA (00:53)
[2017-11-22 08:01] VITALS: BP 142/87; PULSE 78; TEMP 97.6
[2017-11-22 08:28] LABS: BASO % 0.8 % (0.0-2.0); EOS # 0.2 K/uL (0.0-0.7); EOS % 3.1 % (0.0-4.0); HEMOGLOBIN 14.5 g/dL (12.0-18.0); LYMPH # 1.7 K/uL (1.0-4.3); LYMPH % 27.4 % (20.0-40.0); MEAN CORPUSCULAR HEMOGLOBIN 33.3 pg (27.0-31.0); MEAN CORPUSCULAR HGB CONC 35.1 g/dL (33.0-37.0); MEAN PLATELET VOLUME 9.8 fL (7.2-11.7); MONO # 0.4 K/uL (0.0-0.8); MONO % 7.2 % (0.0-10.0); NEUT # 3.8 K/uL (1.8-7.0); NEUT % 61.5 % (50.0-75.0); NRBC % 0.1 % (0.0-2.0); RBC 4.35 Mil/uL (4.40-5.90); RED CELL DISTRIBUTION WIDTH 12.9 % (11.5-14.5); WHITE BLOOD COUNT 6.2 K/uL (4.8-10.8)
[2017-11-22 08:48] LABS: BLOOD UREA NITROGEN 19 mg/dL (9-20); CALCIUM 8.8 mg/dl (8.6-10.4); GFR AFRICAN-AMERICAN > 60; GFR NON-AFRICAN AMERICAN > 60
[2017-11-22] MEDS: Enoxaparin 40 mg Syringe SC SCH (10:13)
[2017-11-22] MEDS: Pantoprazole 40 mg EC Tab PO SCH (10:14)
--- NOTE | 2017-11-22 14:32 | CP.PCM.CON ---
History of Present Illness - History of Present Illness History of Present Illness: Patient is a 47 y/o with CAD, HTN, LIPIDS Hx of cocaine use in past c/o recurrent sharp chest pains across L. chest...no radiation, no anginal character, no diaphoresis, N/V No fevers or chills He had cardiac cath recently to evaluate similar sx's and showed patent grafts and normal LVEF Cardiac Hx: CATH: 11/21/16: LM -> normal LAD: 90% ostial, 70% prox and mid tandem LCX: 90% ostial and mid RCA: 90% mid -> non-dominant vessel Low-normal LV systolic function ---> [place] [facility] [place] 09/15/17 for recurent CP ---> Patent grafts SVG-OM, ROBINS-LAD, Normal LVEF Review of Systems - Review of Systems All systems: reviewed and no additional remarkable complaints except Past Patient History - Infectious Disease Hx of Infectious Diseases: None - Past Medical History & Family History Past Medical History?: Yes - Past Social History Smoking Status: Former Smoker - CARDIAC Hx Cardiac Disorders: Yes Hx Heart Attack: Yes - PULMONARY Hx Asthma: Yes (" When I was young") - NEUROLOGICAL Hx Neurological Disorder: No - HEENT Hx HEENT Problems: No - RENAL Hx Chronic Kidney Disease: No - ENDOCRINE/METABOLIC Hx Endocrine Disorders: No - HEMATOLOGICAL/ONCOLOGICAL Hx Blood Disorders: No - INTEGUMENTARY Hx Dermatological Problems: No - MUSCULOSKELETAL/RHEUMATOLOGICAL Hx Musculoskeletal Disorders: No Hx Falls: No - GASTROINTESTINAL Hx Gastrointestinal Disorders: No - GENITOURINARY/GYNECOLOGICAL Hx Genitourinary Disorders: No - PSYCHIATRIC Hx Anxiety: Yes Hx Substance Use: No - SURGICAL HISTORY Hx Appendectomy: Yes Hx Coronary Artery Bypass Graft: Yes - ANESTHESIA Hx Anesthesia: Yes Hx Anesthesia Reactions: No Hx Malignant Hyperthermia: No Meds Home Medications: Home Medication List Medication Instructions Recorded Confirmed Type Ranolazine [Ranexa] 500 mg PO BID #60 ter 11/22/17 Rx Allergies/Adverse Reactions: Allergies Allergy/AdvReac Type Severity Reaction Status Date / Time shellfish derived Allergy Verified 12/05/16 10:07 - Medications Medications: Current Medications Aspirin (Aspirin Chewable) 81 mg PO DAILY [facility] Last Admin: 11/22/17 10:14 Dose: 81 mg Enoxaparin Sodium (Lovenox) 40 mg SC DAILY [facility] Last Admin: 11/22/17 10:13 Dose: 40 mg Ibuprofen (Motrin Tab) 600 mg PO TID PRN PRN Reason: Pain, moderate (4-7) Last Admin: 11/22/17 10:13 Dose: 600 mg Metoprolol Tartrate (Lopressor) 12.5 mg PO Q12 [facility] Last Admin: 11/22/17 10:14 Dose: 12.5 mg Pantoprazole Sodium (Protonix Ec Tab) 40 mg PO DAILY [facility] Last Admin: 11/22/17 10:14 Dose: 40 mg Rosuvastatin Calcium (Crestor) 10 mg PO HS [facility] Last Admin: 11/21/17 22:00 Dose: 10 mg Results - Vital Signs Recent Vital Signs: Last Vital Signs Temp 97.6 F 11/22/17 07:10 Pulse 78 11/22/17 07:10 Resp 20 11/22/17 07:10 BP 142/87 11/22/17 07:10 Pulse Ox 98 11/22/17 07:10 - Labs Result Diagrams: 11/22/17 07:58 11/22/17 07:58 Labs: Laboratory Results - last 24 hr 11/22/17 11/22/17 07:58 07:58 WBC 6.2 RBC 4.35 L Hgb 14.5 Hct 41.4 MCV 95.0 H MCH 33.3 H MCHC 35.1 RDW 12.9 Plt Count 216 MPV 9.8 Neut % (Auto) 61.5 Lymph % (Auto) 27.4 [place] % (Auto) 7.2 Eos % (Auto) 3.1 Baso % (Auto) 0.8 Neut # (Auto) 3.8 Lymph # (Auto) 1.7 [place] # (Auto) 0.4 Eos # (Auto) 0.2 Baso # (Auto) 0.0 Sodium 140 Potassium 3.7 Chloride 104 Carbon Dioxide 24 Anion Gap 15 BUN 19 Creatinine 1.0 Est GFR ( Amer) > 60 Est GFR (Non-Af Amer) > 60 Random Glucose 93 Calcium 8.8 Phosphorus 3.6 Magnesium 2.0 - EKG Data EKG Interpreted by: Myself Rate: Normal (non-specific ST changes) - Imaging and Cardiology Chest x-ray Status: Image reviewed by me (no infiltrate or effusions, sternotomy) Assessment & Plan - Assessment and Plan (Free Text) Assessment: CP > IN ruled out > no acute ischemic changes on EKG > recent cath 09/2017: Patent SVG-OM, Patent ROBINS-LAD > Known to have normal LVEF with chronic diastolic dysfunction > Labs: H/H, creat WNL ----> sx;s are non cardiac and not suspicious for ACS, chronic CAD should be managed with medical therapy -----> w/u for non-cardiac causes of CP meds Aspirin (Aspirin Chewable) 81 mg PO DAILY [facility] Last Admin: 11/22/17 10:14 Dose: 81 mg Enoxaparin Sodium (Lovenox) 40 mg SC DAILY [facility] Last Admin: 11/22/17 10:13 Dose: 40 mg Ibuprofen (Motrin Tab) 600 mg PO TID PRN PRN Reason: Pain, moderate (4-7) Last Admin: 11/22/17 10:13 Dose: 600 mg Metoprolol Tartrate (Lopressor) 12.5 mg PO Q12 [facility] Last Admin: 11/22/17 10:14 Dose: 12.5 mg Pantoprazole Sodium (Protonix Ec Tab) 40 mg PO DAILY [facility] Last Admin: 11/22/17 10:14 Dose: 40 mg Rosuvastatin Calcium (Crestor) 10 mg PO HS [facility] Last Admin: 11/21/17 22:00 Dose: 10 mg Plan: Continue Rx for CAD, HTN, LIPIDS ASA, metoprolol, crestor Add Ranexa 500 BID f/u with Dr. Caban as outpatient, - Date & Time Date: 11/22/17 Time: 15:00
--- NOTE | 2017-11-22 15:49 | CP.PCM.DIS ---
Provider - Provider Date of Admission: 11/20/17 21:51 Attending physician: Uriel Garcia MD Consults: Dr. Moi Gomez Time Spent in preparation of Discharge (in minutes): 35 Diagnosis - Discharge Diagnosis (1) Musculoskeletal chest pain Status: Acute Hospital Course - Lab Results Lab Results: Most Recent Lab Values WBC 6.2 K/uL (4.8-10.8) 11/22/17 07:58 RBC 4.35 Mil/uL (4.40-5.90) L 11/22/17 07:58 Hgb 14.5 g/dL (12.0-18.0) 11/22/17 07:58 Hct 41.4 % (35.0-51.0) 11/22/17 07:58 MCV 95.0 fL (80.0-94.0) H 11/22/17 07:58 MCH 33.3 pg (27.0-31.0) H 11/22/17 07:58 MCHC 35.1 g/dL (33.0-37.0) 11/22/17 07:58 RDW 12.9 % (11.5-14.5) 11/22/17 07:58 Plt Count 216 K/uL (130-400) 11/22/17 07:58 MPV 9.8 fL (7.2-11.7) 11/22/17 07:58 Neut % (Auto) 61.5 % (50.0-75.0) 11/22/17 07:58 Lymph % (Auto) 27.4 % (20.0-40.0) 11/22/17 07:58 Gonzales % (Auto) 7.2 % (0.0-10.0) 11/22/17 07:58 Eos % (Auto) 3.1 % (0.0-4.0) 11/22/17 07:58 Baso % (Auto) 0.8 % (0.0-2.0) 11/22/17 07:58 Neut # (Auto) 3.8 K/uL (1.8-7.0) 11/22/17 07:58 Lymph # (Auto) 1.7 K/uL (1.0-4.3) 11/22/17 07:58 Gonzales # (Auto) 0.4 K/uL (0.0-0.8) 11/22/17 07:58 Eos # (Auto) 0.2 K/uL (0.0-0.7) 11/22/17 07:58 Baso # (Auto) 0.0 K/uL (0.0-0.2) 11/22/17 07:58 PT 10.8 SECONDS (9.7-12.2) 11/20/17 20:04 INR 1.0 11/20/17 20:04 APTT 28 SECONDS (21-34) 11/20/17 20:04 Sodium 140 mmol/L (132-148) 11/22/17 07:58 Potassium 3.7 mmol/L (3.6-5.2) 11/22/17 07:58 Chloride 104 mmol/L (98-107) 11/22/17 07:58 Carbon Dioxide 24 mmol/L (22-30) 11/22/17 07:58 Anion Gap 15 (10-20) 11/22/17 07:58 BUN 19 mg/dL (9-20) 11/22/17 07:58 Creatinine 1.0 mg/dL (0.8-1.5) 11/22/17 07:58 Est GFR ( Amer) > 60 11/22/17 07:58 Est GFR (Non-Af Amer) > 60 11/22/17 07:58 Random Glucose 93 mg/dL (75-110) 11/22/17 07:58 Hemoglobin A1c 4.8 % (4.2-6.5) 11/21/17 07:00 Calcium 8.8 mg/dl (8.6-10.4) 11/22/17 07:58 Phosphorus 3.6 mg/dL (2.5-4.5) 11/22/17 07:58 Magnesium 2.0 mg/dL (1.6-2.3) 11/22/17 07:58 Total Bilirubin 0.6 mg/dL (0.2-1.3) 11/21/17 07:00 AST 40 U/L (17-59) 11/21/17 07:00 ALT 38 U/L (21-72) 11/21/17 07:00 Alkaline Phosphatase 42 U/L (38-126) 11/21/17 07:00 Total Creatine Kinase 164 U/L (55-170) 11/21/17 07:00 CK-MB (Mass) 1.63 ng/mL (0.0-3.38) 11/21/17 07:00 Troponin I 0.0130 ng/mL (0.00-0.120) 11/21/17 07:00 Total Protein 6.9 g/dL (6.3-8.3) 11/21/17 07:00 Albumin 3.8 g/dL (3.5-5.0) 11/21/17 07:00 Globulin 3.1 gm/dL (2.2-3.9) 11/21/17 07:00 Albumin/Globulin Ratio 1.2 (1.0-2.1) 11/21/17 07:00 Triglycerides 153 mg/dL (0-149) H D 11/21/17 07:00 Cholesterol 209 mg/dL (0-199) H 11/21/17 07:00 LDL Cholesterol Direct 149 mg/dL (0-129) H 11/21/17 07:00 HDL Cholesterol 43 mg/dL (30-70) 11/21/17 07:00 Urine Color Yellow (YELLOW) 11/20/17 20:04 Urine Clarity Clear (Clear) 11/20/17 20:04 Urine pH 5.0 (5.0-8.0) 11/20/17 20:04 Ur Specific [place] 1.016 (1.003-1.030) 11/20/17 20:04 Urine Protein Negative mg/dL (NEGATIVE) 11/20/17 20:04 Urine Glucose (UA) Normal mg/dL (Normal) 11/20/17 20:04 Urine Ketones Negative mg/dL (NEGATIVE) 11/20/17 20:04 Urine Blood Negative (NEGATIVE) 11/20/17 20:04 Urine Nitrate Negative (NEGATIVE) 11/20/17 20:04 Urine Bilirubin Negative (NEGATIVE) 11/20/17 20:04 Urine Urobilinogen Normal mg/dL (0.2-1.0) 11/20/17 20:04 Ur Leukocyte Esterase Neg Ans[place]/uL (Negative) 11/20/17 20:04 Urine WBC (Auto) 4 /hpf (0-5) 11/20/17 20:04 Ur Squamous Epith Cells < 1 /hpf (0-5) 11/20/17 20:04 Urine Bacteria Occ (<OCC) H 11/20/17 20:04 - Hospital Course Hospital Course: Upon admission: 47 year old male with past medical history of HTN and CAD s/p CABG presents to [facility] ED today complains left sided chest pain. Patient reports the chest pain started suddenly yesterday afternoon while he was sitting at home watching TV. Patient describes the pain as tightness in quality and non radiating. The pain not reproducible and it does not improve with position changes. Patient thought the pain will resolve on its own but it became worse overnight. Patient had CABG done in [facility] [place] [facility] in November 2016 and a cardiac cath in October 2017. Patient denies having dizziness, chills, diaphoresis, shortness of breath, nausea, or vomiting. Hospital Course: Patient admitted to the hospital on telemetry 11/20 for chest pain and to r/o ACS. Pt given CUCA score of 3 with 12% risk at 14 days of: all-cause mortalitity , new or recurrent VA, or severe recurrent ischemia requiring urgent revascularization. CXR 11/20 showed no active disease and no acute/significant changes since prior CXR. EKG 11/20 read as borderline; showed normal sinus rhythm at 82bpm with possible LA enlargement and no acute ST changes. Tropins collected 11/20 and repeated 2x all found to be negative. Pt started on home ASA 81mg, Crestor 5mg and Metoprolol 12.5mg as well as protonix and lovenox for prophylaxis. On 11/21 pt given one dose of morphine and started on Motrin PRN for pain. HbA1C found to be 4.8. Lipid panel showed: Trig 153, Chol 209, LDL 149 , HDL 43. Repeat EKG 11/21 in AM showed normal sinus rhythm and nonspecific T wave abnormality; read as negative for ACS. Pt found to be hypokamemic on admission (3.4) and was given KCl PO. Seen by Dr. Prater 11/21 who confirmed that pt will f/u with his hydrotherapist Dr. Caban. He saw th patient on 11/22 and recommended Ranexa with follow up as outpatient. Patient clear for discharge per Dr. Barrow and cardiology. Patient discharged with instructions to follow up with his hydrotherapist and PCP, as well as with a prescription for Ranexa [address] Caban. Please note that this is a summary of events. For more details, please see complete medical record. Discharge Exam - Head Exam Head Exam: ATRAUMATIC, NORMOCEPHALIC - Eye Exam Eye Exam: EOMI, Normal appearance, PERRL Pupil Exam: NORMAL ACCOMODATION, PERRL - Respiratory Exam Respiratory Exam: Clear to PA & Lateral, UNREMARKABLE - Cardiovascular Exam Cardiovascular Exam: REGULAR RHYTHM, +S1, +S2 - GI/Abdominal Exam GI & Abdominal Exam: Normal Bowel Sounds - Extremities Exam Extremities exam: normal inspection - Neurological Exam Neurological exam: Alert, Normal Gait, Oriented x3 - Psychiatric Exam Psychiatric exam: Normal Affect, Normal Mood - Skin Skin Exam: Dry, Intact, Normal Color, Warm Discharge Plan - Discharge Medications Prescriptions: Ranolazine [Ranexa] 500 mg PO BID #60 ter - Follow Up Plan Condition: GOOD Disposition: HOME/ ROUTINE Instructions: Ranolazine, Heart Healthy Diet, Chest Pain (DC) Additional Instructions: Please follow up with your PCP and hydrotherapist within 1 week of discharge. Please continue all home medications. Referrals: Enzo Caban MD [Staff Provider] -
== END 2017-11-22 15:21 | disposition home or self-care (01) | DRG 143 ==
LOC: C.ER 18:29 → C.9E 21:51 → C.6T 23:06
PROVIDERS: ADMIT Family Medicine; ATTEND Family Medicine
DX: R07.89 Other chest pain (principal); E87.6 Hypokalemia; I25.10 Atherosclerotic heart disease of native coronary artery without angina pectoris; I10 Essential (primary) hypertension; I25.2 Old myocardial infarction; Z95.1 Presence of aortocoronary bypass graft; Z87.891 Personal history of nicotine dependence; Z90.49 Acquired absence of other specified parts of digestive tract

== ENCOUNTER 2018-01-07 18:07 | Emergency (ER) | payer MEDICAID ==
[2018-01-07] MEDS ORDERED: Lidocaine 5% Patch TD STA (18:29)
[2018-01-07 18:37] VITALS: RESP 18; BMI 31.9
--- NOTE | 2018-01-07 19:33 | C.PDOC ---
History Of Present Illness 47 year old male presents to the emergency department with complaints of lower back pain upon waking up this morning. Patient reports that his pain is gradually worsening, as it started with an aching sensation but now it is radiating down both legs and making it painful to stand and walk. Patient denies taking anything for the pain. Time Seen by Provider: 01/07/18 18:24 Chief Complaint (Nursing): Back Pain History Per: Patient History/Exam Limitations: no limitations Onset/Duration Of Symptoms: Hrs Current Symptoms Are (Timing): Worse Quality Of Discomfort: Aching, "Pain" Past Medical History Reviewed: Historical Data, Nursing Documentation, Vital Signs Vital Signs: Last Vital Signs Temp 97.7 F 01/07/18 19:49 Pulse 61 01/07/18 19:49 Resp 18 01/07/18 19:49 BP 112/79 01/07/18 19:49 Pulse Ox 95 01/07/18 19:51 - Medical History PMH: Anxiety, Asthma (" When I was young"), CAD Denies: Chronic Kidney Disease Surgical History: Appendectomy, CABG - [facility] Procedures FLUOROSCOPY OF LEFT HEART USING LOW OSMOLAR CONTRAST (11/19/16) FLUOROSCOPY OF MULT COR ART USING L OSM CONTRAST (11/19/16) MEASURE OF CARDIAC SAMPL & PRESSURE, L HEART, PERC APPROACH (11/19/16) Family History: States: Diabetes - Social History Hx Tobacco Use: Yes Hx Alcohol Use: No Hx Substance Use: No - Immunization History Hx Tetanus Toxoid Vaccination: No Hx Influenza Vaccination: No Hx Pneumococcal Vaccination: No Review Of Systems Musculoskeletal: Positive for: Back Pain, Leg Pain Physical Exam - Physical Exam Appears: Non-toxic, Other (uncomfortable in pain) Skin: Warm, Dry, No Rash Head: Atraumatic, Normacephalic Eye(s): bilateral: Normal Inspection Nose: Normal Neck: Normal ROM, Supple Chest: Symmetrical Cardiovascular: Rhythm Regular, No Murmur Respiratory: Normal Breath Sounds, No Rales, No Rhonchi, No Wheezing Gastrointestinal/Abdominal: Normal Exam, Soft, No Tenderness, No Guarding, No Rebound Back: Normal Inspection (no swelling, bulging or rash), No Vertebral Tenderness , Muscle Spasm, Paraspinal Tenderness (paralumbar tenderness, worse on left side than right) Extremity: Bilateral: Atraumatic, No Pedal Edema, Normal Color And Temperature Pulses: Left Dorsalis Pedis: Normal, Right Dorsalis Pedis: Normal Neurological/Psych: Oriented x3, Normal Speech Gait: Unable To Assess ED Course And Treatment O2 Sat by Pulse Oximetry: 95 (RA) Pulse Ox Interpretation: Normal Medical Decision Making Medical Decision Making: Impression: back pain Plan: Lidoderm 1ea TD Toradol 60mg IM Tylenol 975mg PO Valium 5mg PO Re-eval: On reassessment, patient was sleeping on stretcher and arousable. Patient then starts to moan and states he is still having pain. I advise patient to call family member for pickup. Patient has no fever, numbness, weakness, vertebral tenderness. No recent injury or trauma to indicate xray. He was given ice pack and awaited his ride. Patient was advised to follow up with physician/clinic in 1-2 days. Disposition Counseled Patient/Family Regarding: Diagnosis, Need For Followup, Rx Given - Disposition Referrals: Heladio Muñoz MD [Staff Provider] - Disposition: HOME/ ROUTINE Disposition Time: 19:48 Condition: IMPROVED Additional Instructions: You can apply heat to area Take Tylenol 500mg for any pain Take Ibuprofen as needed for pain every 6-8 hours, with food to not upset stomach Take Robaxin every 8 hours as needed for muscular pain and spasm, caution may cause drowsiness Prescriptions: Ibuprofen [Motrin] 600 mg PO Q8 #30 tab Methocarbamol [Robaxin-750] 750 mg PO Q8 #20 tab traMADol [Ultram] 50 mg PO Q8 #20 tab Instructions: Lumbar Muscle Strain (DC) Forms: [employer] ([employer]) - POA Present On Arrival: None - Clinical Impression Clinical Impression: Low back strain - PA / VOCATIONAL NURSING INSTRUCTOR / Resident Statement MD/DO has reviewed & agrees with the documentation as recorded. - Scribe Statement The provider has reviewed the documentation as recorded by the Scribe (Moreno Damian) All medical record entries made by the Scribe were at my direction and personally dictated by me. I have reviewed the chart and agree that the record accurately reflects my personal performance of the history, physical exam, medical decision making, and the department course for this patient. I have also personally directed, reviewed, and agree with the discharge instructions and disposition.
[2018-01-07 19:49] VITALS: BP 112/79; PULSE 61; TEMP 97.7
[2018-01-07 19:50] VITALS: O2SAT 95
== END 2018-01-07 20:58 | disposition home or self-care (01) ==
LOC: C.ER 18:07
DX: S39.012A Strain of muscle, fascia and tendon of lower back, initial encounter (principal); X58.XXXA Exposure to other specified factors, initial encounter; Y92.9 Unspecified place or not applicable
CPT/HCPCS: 96372; 99284; J1885

== ENCOUNTER 2018-09-23 12:58 | Observation (INO) | payer MEDICAID ==
[2018-09-23 12:58] VITALS: BMI 31.9
[2018-09-23 13:15] VITALS: RESP 20
--- NOTE | 2018-09-23 13:56 | C.PDOC ---
History Of Present Illness 48 y/o M c PMHx CAD s/p CABG, last cocaine use 2 days ago p/w chest pain x 2 hours that started at rest. Reports associated shortness of breath. Denies fever, chills, nausea, vomiting diaphoresis, leg swelling. Time Seen by Provider: 09/23/18 13:06 Chief Complaint (Nursing): Chest Pain Past Medical History Vital Signs: Last Vital Signs Temp 97.9 F 09/23/18 13:03 Pulse 79 09/23/18 13:03 Resp 20 09/23/18 13:03 BP 115/79 09/23/18 13:03 Pulse Ox 96 09/23/18 13:03 - Medical History PMH: Anxiety, Asthma (" When I was young"), CAD Denies: Chronic Kidney Disease Surgical History: Appendectomy, CABG - [facility] Procedures FLUOROSCOPY OF LEFT HEART USING LOW OSMOLAR CONTRAST (11/19/16) FLUOROSCOPY OF MULT COR ART USING L OSM CONTRAST (11/19/16) MEASURE OF CARDIAC SAMPL & PRESSURE, L HEART, PERC APPROACH (11/19/16) Family History: States: Diabetes - Social History Hx Tobacco Use: Yes Hx Alcohol Use: No Hx Substance Use: No - Immunization History Hx Tetanus Toxoid Vaccination: No Hx Influenza Vaccination: No Hx Pneumococcal Vaccination: No Review Of Systems Except As Marked, All Systems Reviewed And Found Negative. Constitutional: Negative for: Fever Gastrointestinal: Negative for: Vomiting Physical Exam - Physical Exam Additional Physical Exam Comments: Constitutional: No acute distress. Head: Normocephalic. Atraumatic. Eyes: PERRL. ENT: Moist mucous membranes. Neck: Supple. Cardiovascular: Regular rate. Radial pulse 2+ bilaterally. Chest: No tenderness. Respiratory: Clear to auscultation bilaterally. GI: Soft. Nontender. Nondistended. Back: No CVA tenderness. Musculoskeletal: No tenderness or swelling of extremities. Skin: No rash. Neurologic: Alert, no focal deficit. ED Course And Treatment - Laboratory Results Result Diagrams: 09/23/18 14:23 09/23/18 14:23 O2 Sat by Pulse Oximetry: 96 Medical Decision Making Medical Decision Making: Full dose aspirin administered prior to arrival. EKG NSR 70 bpm, no ST/T wave changes. CXR no acute disease. Disposition - Disposition Disposition: HOSPITALIZED Disposition Time: 15:27 Condition: FAIR - POA Core Measure Indicators: Chest Pain - Clinical Impression Clinical Impression: Chest pain
[2018-09-23 14:32] LABS: BASO # 0.1 K/uL (0.0-0.2); BASO % 1.2 % (0.0-2.0); EOS # 0.1 K/uL (0.0-0.7); EOS % 2.6 % (0.0-4.0); HEMOGLOBIN 14.5 g/dL (12.0-18.0); LYMPH # 1.2 K/uL (1.0-4.3); LYMPH % 26.1 % (20.0-40.0); MEAN CELL VOLUME 96.4 fL (80.0-94.0); MEAN CORPUSCULAR HEMOGLOBIN 33.1 pg (27.0-31.0); MEAN CORPUSCULAR HGB CONC 34.3 g/dL (33.0-37.0); MEAN PLATELET VOLUME 10.2 fL (7.2-11.7); MONO # 0.4 K/uL (0.0-0.8); MONO % 8.9 % (0.0-10.0); NEUT # 2.7 K/uL (1.8-7.0); NEUT % 61.2 % (50.0-75.0); RBC 4.39 Mil/uL (4.40-5.90); RED CELL DISTRIBUTION WIDTH 12.6 % (11.5-14.5); WHITE BLOOD COUNT 4.4 K/uL (4.8-10.8)
[2018-09-23 14:42] LABS: ALB/GLOB RATIO 1.5 (1.0-2.1); ALBUMIN 4.1 g/dL (3.5-5.0); ALT/SGPT 30 U/L (21-72); AST/SGOT 33 U/L (17-59); BLOOD UREA NITROGEN 22 mg/dL (9-20); CALCIUM 8.5 mg/dl (8.6-10.4); GFR NON-AFRICAN AMERICAN > 60
[2018-09-23 14:54] LABS: CK-MB 1.57 ng/mL (0.0-3.38)
--- NOTE | 2018-09-23 16:56 | RAD ---
Date of service: 09/23/2018 HISTORY: chest pressure COMPARISON: Portable chest 11/20/2017. FINDINGS: LUNGS: No active pulmonary disease. PLEURA: No significant pleural effusion identified, no pneumothorax apparent. CARDIOVASCULAR: No aortic atherosclerotic calcification present. Normal cardiac size. No pulmonary vascular congestion identified. Post CABG changes reiterated. OSSEOUS STRUCTURES: No significant abnormalities. VISUALIZED UPPER ABDOMEN: Normal. OTHER FINDINGS: None. IMPRESSION: No interval acute cardiopulmonary disease appreciated. Post CABG changes reiterated.
--- NOTE | 2018-09-23 17:45 | CP.PCM.HP ---
<Vickie Berg - Last Filed: 09/23/18 17:31> History of Present Illness - History of Present Illness History of Present Illness: CC: chest pain HPI: Patient is a 48 year old male with PMHx of CABG (2016) and herniated discs who presents today for chest pain which started upon waking up at 11am. Patient says the pain is 5/10 and squeezing in nature on the left side of the chest. Patient says the pain is different from when he had his CABG, but that this is his first episode of chest pain since the surgery. Patient says he took all of his medications this morning. Patient did not have shortness of breath when the chest pain first started, but when seeing him in the ER the patient complains of shortness of breath. Patient denies any headache, dizziness, abdominal pain, nausea, vomiting, constipation or diarrhea. Patient has not seen a non destructive testing supervisor since 2 months after his CABG. Patient admits to inhaling 1/2 gram of cocaine on Monday and smoked 1 joint of marijuana. Patient used to use cocaine prior to his CABG, but this was his first time using cocaine after the CABG. All: shrimp PMHx: CAD, CABG (11/2016), herniated discs Psurg: CABG (11/28), apppendectomy Famhx: Mom- CABG at 64 Social: smokes 2 cigarettes per day since CABG, prior 30 pack year history, denies alcohol, hx of cocaine use (admits to only one use on 09/21 since CABG), marijuana: smokes 1 joint per month Present on Admission - Present on Admission Any Indicators Present on Admission: No History of DVT/PE: No History of Uncontrolled Diabetes: No Urinary Catheter: No Decubitus Ulcer Present: No Review of Systems - Constitutional Constitutional: absent: Fever - EENT Eyes: absent: Change in Vision Nose/Mouth/Throat: absent: Nasal Congestion, Sore Throat - Cardiovascular Cardiovascular: Chest Pain, Dyspnea. absent: Edema - Gastrointestinal Gastrointestinal: absent: Abdominal Pain, Constipation, Diarrhea, Nausea, Vomiting - Genitourinary Genitourinary: absent: Dysuria, Hematuria - Musculoskeletal Musculoskeletal: absent: Numbness, Tingling - Integumentary Integumentary: absent: Rash - Neurological Neurological: absent: Dizziness, Weakness Past Patient History - Infectious Disease Hx of Infectious Diseases: None - Past Medical History & Family History Past Medical History?: Yes - Past Social History Smoking Status: Former Smoker - CARDIAC Hx Cardiac Disorders: Yes Hx Heart Attack: Yes - PULMONARY Hx Asthma: Yes (" When I was young") - NEUROLOGICAL Hx Neurological Disorder: No - HEENT Hx HEENT Problems: No - RENAL Hx Chronic Kidney Disease: No - ENDOCRINE/METABOLIC Hx Endocrine Disorders: No - HEMATOLOGICAL/ONCOLOGICAL Hx Blood Disorders: No - INTEGUMENTARY Hx Dermatological Problems: No - MUSCULOSKELETAL/RHEUMATOLOGICAL Hx Musculoskeletal Disorders: No Hx Falls: No - GASTROINTESTINAL Hx Gastrointestinal Disorders: No - GENITOURINARY/GYNECOLOGICAL Hx Genitourinary Disorders: No - PSYCHIATRIC Hx Anxiety: Yes Hx Substance Use: No - SURGICAL HISTORY Hx Appendectomy: Yes Hx Coronary Artery Bypass Graft: Yes - ANESTHESIA Hx Anesthesia: Yes Hx Anesthesia Reactions: No Hx Malignant Hyperthermia: No Meds Allergies/Adverse Reactions: Allergies Allergy/AdvReac Type Severity Reaction Status Date / Time shellfish derived Allergy Verified 09/23/18 13:12 Physical Exam - Constitutional Appears: Non-toxic, No Acute Distress - Head Exam Head Exam: ATRAUMATIC, NORMAL INSPECTION, NORMOCEPHALIC - Eye Exam Eye Exam: EOMI, Normal appearance - ENT Exam ENT Exam: Mucous Membranes Moist - Respiratory Exam Respiratory Exam: Clear to Auscultation Bilateral, NORMAL BREATHING PATTERN. absent: Rales, Rhonchi, Wheezes, Respiratory Distress, Stridor - Cardiovascular Exam Cardiovascular Exam: REGULAR RHYTHM, RRR, +S1, +S2 - GI/Abdominal Exam GI & Abdominal Exam: Normal Bowel Sounds, Soft. absent: Tenderness - Extremities Exam Extremities exam: Positive for: normal inspection - Back Exam Back exam: NORMAL INSPECTION - Neurological Exam Neurological exam: Alert, Oriented x3 - Psychiatric Exam Psychiatric exam: Normal Affect, Normal Mood - Skin Skin Exam: Intact, Normal Color, Warm Results - Vital Signs Recent Vital Signs: Last Vital Signs Temp 97.6 F 09/23/18 17:00 Pulse 73 09/23/18 17:00 Resp 20 09/23/18 17:00 BP 117/76 09/23/18 17:00 Pulse Ox 95 09/23/18 17:00 - Labs Result Diagrams: 09/23/18 14:23 09/23/18 14:23 Labs: Laboratory Results - last 24 hr 02/10/19 02/10/19 14:23 14:23 WBC 4.4 L RBC 4.39 L Hgb 14.5 Hct 42.3 MCV 96.4 H MCH 33.1 H MCHC 34.3 RDW 12.6 Plt Count 217 MPV 10.2 Neut % (Auto) 61.2 Lymph % (Auto) 26.1 [place] % (Auto) 8.9 Eos % (Auto) 2.6 Baso % (Auto) 1.2 Neut # (Auto) 2.7 Lymph # (Auto) 1.2 [place] # (Auto) 0.4 Eos # (Auto) 0.1 Baso # (Auto) 0.1 Sodium 137 Potassium 3.8 Chloride 108 H Carbon Dioxide 23 Anion Gap 10 BUN 22 H Creatinine 0.8 Est GFR ( Amer) > 60 Est GFR (Non-Af Amer) > 60 Random Glucose 98 Calcium 8.5 L Total Bilirubin 0.5 AST 33 ALT 30 Alkaline Phosphatase 47 Total Creatine Kinase 147 CK-MB (Mass) 1.57 Troponin I < 0.0120 Total Protein 6.7 Albumin 4.1 Globulin 2.6 Albumin/Globulin Ratio 1.5 Assessment & Plan - Assessment and Plan (Free Text) Assessment: Chest Pain r/o ACS EKG: NSR Troponin <.0120 f/u KERRY q6h with ekgs f/u ECHO Cardio consulted, Dr. Hayward, help appreciated meds: * Atorvastatin NF, Crestor 5mg po HS * Lovenox 80mg sc q12h CAD hx CABG patient does not know home medications pharmacy closed when called, will need to confirm with [facility] on [address] ([phone]) meds * Crestor 5mg po HS * hold metoprolol 12.5mg po q12h 2/2 cocaine use Hx Herniated Discs meds * Ultram 50mg po q8h prn * Flexeril 10mg po HS prn Cocaine Use f/u UDS Prophylaxis Lovenox 80 mg sc q12h no gi prophylaxis indicated Discussed with Dr. Lopez <Ravinder Lopez H - Last Filed: 09/23/18 19:19> Results - Vital Signs Recent Vital Signs: Last Vital Signs Temp 97.6 F 09/23/18 17:00 Pulse 73 09/23/18 17:00 Resp 20 09/23/18 17:00 BP 117/76 09/23/18 17:00 Pulse Ox 95 09/23/18 17:00 - Labs Result Diagrams: 09/23/18 14:23 09/23/18 14:23 Labs: Laboratory Results - last 24 hr 09/23/18 09/23/18 14:23 14:23 WBC 4.4 L RBC 4.39 L Hgb 14.5 Hct 42.3 MCV 96.4 H MCH 33.1 H MCHC 34.3 RDW 12.6 Plt Count 217 MPV 10.2 Neut % (Auto) 61.2 Lymph % (Auto) 26.1 [place] % (Auto) 8.9 Eos % (Auto) 2.6 Baso % (Auto) 1.2 Neut # (Auto) 2.7 Lymph # (Auto) 1.2 [place] # (Auto) 0.4 Eos # (Auto) 0.1 Baso # (Auto) 0.1 Sodium 137 Potassium 3.8 Chloride 108 H Carbon Dioxide 23 Anion Gap 10 BUN 22 H Creatinine 0.8 Est GFR ( Amer) > 60 Est GFR (Non-Af Amer) > 60 Random Glucose 98 Calcium 8.5 L Total Bilirubin 0.5 AST 33 ALT 30 Alkaline Phosphatase 47 Total Creatine Kinase 147 CK-MB (Mass) 1.57 Troponin I < 0.0120 Total Protein 6.7 Albumin 4.1 Globulin 2.6 Albumin/Globulin Ratio 1.5 Attending/Attestation - Attestation I have personally seen and examined this patient.: Yes I have fully participated in the care of the patient.: Yes I have reviewed all pertinent clinical information: Yes Notes (Text): 09/23/18 19:16 Medical attending: Patient was seen and examined by me with the medical assembly in the ER bed 12 The patient reported developing the chest pain and in particular for the past two days after he used cocaine. He has a history of 2017 cardiac cath and transfer to [facility] were he had CABG surgery He is not sure how many vessel bypass he had. Patient reports he has been taking all of his medications - including BB - and because of the cocaine we stopped this for now and we can use ativan or cardizem if he becomes tachycardic Because of the history of CABG will get lovenox SC BID 80 and also ASA, statin, and LINA-I Will also get cardiology evaluation as well Orders for additional cardiac enzymes and repeat EKGs Ravinder Lopez
[2018-09-23 20:47] LABS: BARBITURATES, UR NEGATIVE (NEGATIVE); BENZODIAZEPINES, UR NEGATIVE (NEGATIVE); OPIATES, UR NEGATIVE (NEGATIVE); PHENCYCLIDINE, UR NEGATIVE (NEGATIVE)
[2018-09-23 20:55] LABS: CK-MB 1.29 ng/mL (0.0-3.38)
[2018-09-23] MEDS: Enoxaparin 80 mg Syringe SC SCH (21:53)
[2018-09-24 02:28] LABS: BASO # 0.1 K/uL (0.0-0.2); EOS # 0.1 K/uL (0.0-0.7); EOS % 2.6 % (0.0-4.0); HEMOGLOBIN 14.8 g/dL (12.0-18.0); LYMPH # 1.7 K/uL (1.0-4.3); LYMPH % 31.7 % (20.0-40.0); MEAN CELL VOLUME 97.6 fL (80.0-94.0); MEAN CORPUSCULAR HEMOGLOBIN 33.2 pg (27.0-31.0); MEAN PLATELET VOLUME 10.1 fL (7.2-11.7); MONO # 0.4 K/uL (0.0-0.8); MONO % 8.4 % (0.0-10.0); NEUT % 56.3 % (50.0-75.0); NRBC % 0.1 % (0.0-2.0); RBC 4.47 Mil/uL (4.40-5.90); RED CELL DISTRIBUTION WIDTH 12.9 % (11.5-14.5); WHITE BLOOD COUNT 5.3 K/uL (4.8-10.8)
[2018-09-24 02:37] LABS: ALB/GLOB RATIO 1.6 (1.0-2.1); ALT/SGPT 33 U/L (21-72); AST/SGOT 28 U/L (17-59); BLOOD UREA NITROGEN 19 mg/dL (9-20); CALCIUM 8.8 mg/dl (8.6-10.4); GFR NON-AFRICAN AMERICAN > 60
[2018-09-24 07:17] VITALS: BP 112/71; PULSE 70; TEMP 97.9; O2SAT 97
[2018-09-24] MEDS: Enoxaparin 80 mg Syringe SC SCH (10:24)
--- NOTE | 2018-09-24 11:51 | CP.PCM.CON ---
History of Present Illness - History of Present Illness History of Present Illness: Patient is a 47 y/o with CAD, HTN, LIPIDS Hx of cocaine use : last cocaine use 2 days ago p/w chest pain x 2 hours that started at rest. Reports associated shortness of breath. Denies fever, chills, nausea, vomiting diaphoresis, leg swelling. He had cardiac cath 09/2017 to evaluate similar sx's and showed patent grafts and normal LVEF. Cardiac Hx: CATH: 11/21/16: LM -> normal LAD: 90% ostial, 70% prox and mid tandem LCX: 90% ostial and mid RCA: 90% mid -> non-dominant vessel Low-normal LV systolic function ---> Transferred and Rx with CABG x2 at [facility] [place] ---> Repeat cath 09/15/17 for recurent CP ---> Patent grafts SVG-OM, ROBINS-LAD, Normal LVEF Review of Systems - Review of Systems All systems: reviewed and no additional remarkable complaints except Past Patient History - Infectious Disease Hx of Infectious Diseases: None - Past Medical History & Family History Past Medical History?: Yes - Past Social History Smoking Status: Former Smoker - CARDIAC Hx Cardiac Disorders: Yes Hx Heart Attack: Yes - PULMONARY Hx Asthma: Yes (" When I was young") - NEUROLOGICAL Hx Neurological Disorder: No - HEENT Hx HEENT Problems: No - RENAL Hx Chronic Kidney Disease: No - ENDOCRINE/METABOLIC Hx Endocrine Disorders: No - HEMATOLOGICAL/ONCOLOGICAL Hx Blood Disorders: No - INTEGUMENTARY Hx Dermatological Problems: No - MUSCULOSKELETAL/RHEUMATOLOGICAL Hx Musculoskeletal Disorders: No Hx Falls: No - GASTROINTESTINAL Hx Gastrointestinal Disorders: No - GENITOURINARY/GYNECOLOGICAL Hx Genitourinary Disorders: No - PSYCHIATRIC Hx Anxiety: Yes Hx Substance Use: No - SURGICAL HISTORY Hx Appendectomy: Yes Hx Coronary Artery Bypass Graft: Yes - ANESTHESIA Hx Anesthesia: Yes Hx Anesthesia Reactions: No Hx Malignant Hyperthermia: No Meds Home Medications: Home Medication List Medication Instructions Recorded Confirmed Type Cyclobenzaprine [Flexeril] 10 mg PO HS PRN tab 09/24/18 Rx Allergies/Adverse Reactions: Allergies Allergy/AdvReac Type Severity Reaction Status Date / Time shellfish derived Allergy Verified 09/23/18 13:12 - Medications Medications: Current Medications Aspirin (Aspirin Chewable) 81 mg PO DAILY JENN Last Admin: 09/24/18 10:24 Dose: 81 mg Cyclobenzaprine HCl (Flexeril) 10 mg PO HS PRN PRN Reason: Muscle spasm Heparin Sodium (Porcine) (Heparin) 5,000 units SC Q8 JENN Rosuvastatin Calcium (Crestor) 5 mg PO HS JENN Last Admin: 09/23/18 21:53 Dose: 5 mg Tramadol HCl (Ultram) 50 mg PO Q8 PRN PRN Reason: Pain, moderate (4-7) Last Admin: 09/23/18 19:07 Dose: 50 mg Physical Exam - Constitutional Appears: No Acute Distress - Head Exam Head Exam: ATRAUMATIC, NORMAL INSPECTION, NORMOCEPHALIC - Eye Exam Eye Exam: EOMI, Normal appearance, PERRL - ENT Exam ENT Exam: Mucous Membranes Moist, Normal Oropharynx - Neck Exam Neck exam: Positive for: Full Rom, Normal Inspection. Negative for: Tenderness - Respiratory Exam Respiratory Exam: Clear to Auscultation Bilateral, NORMAL BREATHING PATTERN. absent: Rhonchi, Wheezes - Cardiovascular Exam Cardiovascular Exam: REGULAR RHYTHM, +S1, +S2. absent: Gallop, JVD, +S4, Systolic Murmur - GI/Abdominal Exam GI & Abdominal Exam: Normal Bowel Sounds, Soft. absent: Rebound, Tenderness - Extremities Exam Extremities exam: Positive for: normal inspection, pedal pulses present. Negative for: calf tenderness, pedal edema - Neurological Exam Neurological exam: Alert, Oriented x3 - Psychiatric Exam Psychiatric exam: Normal Affect, Normal Mood - Skin Skin Exam: Normal Color, Warm Results - Vital Signs Recent Vital Signs: Last Vital Signs Temp 97.9 F 09/24/18 07:00 Pulse 70 09/24/18 07:00 Resp 20 09/24/18 07:00 BP 112/71 09/24/18 07:00 Pulse Ox 97 09/24/18 08:02 - Labs Result Diagrams: 09/24/18 02:14 09/24/18 02:14 Labs: Laboratory Results - last 24 hr 09/23/18 09/23/18 09/23/18 14:23 14:23 20:22 WBC 4.4 L RBC 4.39 L Hgb 14.5 Hct 42.3 MCV 96.4 H MCH 33.1 H MCHC 34.3 RDW 12.6 Plt Count 217 MPV 10.2 Neut % (Auto) 61.2 Lymph % (Auto) 26.1 [place] % (Auto) 8.9 Eos % (Auto) 2.6 Baso % (Auto) 1.2 Neut # (Auto) 2.7 Lymph # (Auto) 1.2 [place] # (Auto) 0.4 Eos # (Auto) 0.1 Baso # (Auto) 0.1 Sodium 137 Potassium 3.8 Chloride 108 H Carbon Dioxide 23 Anion Gap 10 BUN 22 H Creatinine 0.8 Est GFR ( Amer) > 60 Est GFR (Non-Af Amer) > 60 Random Glucose 98 Calcium 8.5 L Phosphorus Magnesium Total Bilirubin 0.5 AST 33 ALT 30 Alkaline Phosphatase 47 Total Creatine Kinase 147 128 CK-MB (Mass) 1.57 1.29 Troponin I < 0.0120 < 0.0120 Total Protein 6.7 Albumin 4.1 Globulin 2.6 Albumin/Globulin Ratio 1.5 Urine Opiates Screen Urine Methadone Screen Ur Barbiturates Screen Ur Phencyclidine Scrn Ur Amphetamines Screen U Benzodiazepines Scrn U Oth Cocaine Metabols U Cannabinoids Screen 09/23/18 09/24/18 09/24/18 20:22 02:14 02:14 WBC 5.3 RBC 4.47 Hgb 14.8 Hct 43.6 MCV 97.6 H MCH 33.2 H MCHC 34.0 RDW 12.9 Plt Count 187 MPV 10.1 Neut % (Auto) 56.3 Lymph % (Auto) 31.7 [place] % (Auto) 8.4 Eos % (Auto) 2.6 Baso % (Auto) 1.0 Neut # (Auto) 3.0 Lymph # (Auto) 1.7 [place] # (Auto) 0.4 Eos # (Auto) 0.1 Baso # (Auto) 0.1 Sodium 139 Potassium 3.9 Chloride 106 Carbon Dioxide 27 Anion Gap 10 BUN 19 Creatinine 1.0 Est GFR ( Amer) > 60 Est GFR (Non-Af Amer) > 60 Random Glucose 112 H Calcium 8.8 Phosphorus 3.4 Magnesium 2.0 Total Bilirubin 0.3 AST 28 ALT 33 Alkaline Phosphatase 59 Total Creatine Kinase 107 CK-MB (Mass) 0.90 Troponin I < 0.0120 Total Protein 6.5 Albumin 4.0 Globulin 2.5 Albumin/Globulin Ratio 1.6 Urine Opiates Screen Negative Urine Methadone Screen Negative Ur Barbiturates Screen Negative Ur Phencyclidine Scrn Negative Ur Amphetamines Screen Negative U Benzodiazepines Scrn Negative U Oth Cocaine Metabols Positive H U Cannabinoids Screen Positive H Assessment & Plan - Assessment and Plan (Free Text) Assessment: 48 y/o with known CAD CABG 2016 and patent grafts on repeat cath 09/2017 presents with CP in the context of recurrent cocaine abuse. CAD: - stable, AR ruled out - EKG images reviewed by me: No acute ischemic changes (Normal) - CXR images revied by me: No congestion or infiltrate - echo done 09/24/18: directly viewed by me: Normal LVEF, mild LVH, grade 2 DD, mild TR, mild AI, normal wall motion. - CP likely c/w cocaine use, possible vasospasm versus musculoskeletal Advised : risks of continued cocaine use ----> continue ASA 81 HTN - normal without Rx - will consdier ARB or amlodipine if needed LIPIDS - cont crestor and low fat/chol diet. D/C planning: non-compliant with f/u: advised to see us ongoing for cardiac care. - Date & Time Date: 09/24/18 Time: 11:59
--- NOTE | 2018-09-24 12:34 | CP.PCM.DIS ---
Provider - Provider Date of Admission: 09/23/18 15:26 Attending physician: Ravinder Lopez DO Consults: 09/23/18 17:21 Cardiology Consult Routine Comment: Consulting Provider: Freddy Hayward Consulting Physician: Freddy Hayward Reason for Consult: chest pain with SOB, Hx CABG, cocaine use on 09/21/18 Time Spent in preparation of Discharge (in minutes): 35 Hospital Course - Lab Results Lab Results: Most Recent Lab Values WBC 5.3 K/uL (4.8-10.8) 09/24/18 02:14 RBC 4.47 Mil/uL (4.40-5.90) 09/24/18 02:14 Hgb 14.8 g/dL (12.0-18.0) 09/24/18 02:14 Hct 43.6 % (35.0-51.0) 09/24/18 02:14 MCV 97.6 fL (80.0-94.0) H 09/24/18 02:14 MCH 33.2 pg (27.0-31.0) H 09/24/18 02:14 MCHC 34.0 g/dL (33.0-37.0) 09/24/18 02:14 RDW 12.9 % (11.5-14.5) 09/24/18 02:14 Plt Count 187 K/uL (130-400) 09/24/18 02:14 MPV 10.1 fL (7.2-11.7) 09/24/18 02:14 Neut % (Auto) 56.3 % (50.0-75.0) 09/24/18 02:14 Lymph % (Auto) 31.7 % (20.0-40.0) 09/24/18 02:14 [place] % (Auto) 8.4 % (0.0-10.0) 09/24/18 02:14 Eos % (Auto) 2.6 % (0.0-4.0) 09/24/18 02:14 Baso % (Auto) 1.0 % (0.0-2.0) 09/24/18 02:14 Neut # (Auto) 3.0 K/uL (1.8-7.0) 09/24/18 02:14 Lymph # (Auto) 1.7 K/uL (1.0-4.3) 09/24/18 02:14 [place] # (Auto) 0.4 K/uL (0.0-0.8) 09/24/18 02:14 Eos # (Auto) 0.1 K/uL (0.0-0.7) 09/24/18 02:14 Baso # (Auto) 0.1 K/uL (0.0-0.2) 09/24/18 02:14 Sodium 139 mmol/L (132-148) 09/24/18 02:14 Potassium 3.9 mmol/L (3.6-5.2) 09/24/18 02:14 Chloride 106 mmol/L (98-107) 09/24/18 02:14 Carbon Dioxide 27 mmol/L (22-30) 09/24/18 02:14 Anion Gap 10 (10-20) 09/24/18 02:14 BUN 19 mg/dL (9-20) 09/24/18 02:14 Creatinine 1.0 mg/dL (0.8-1.5) 09/24/18 02:14 Est GFR ( Amer) > 60 09/24/18 02:14 Est GFR (Non-Af Amer) > 60 09/24/18 02:14 Random Glucose 112 mg/dL (75-110) H 09/24/18 02:14 Calcium 8.8 mg/dl (8.6-10.4) 09/24/18 02:14 Phosphorus 3.4 mg/dL (2.5-4.5) 09/24/18 02:14 Magnesium 2.0 mg/dL (1.6-2.3) 09/24/18 02:14 Total Bilirubin 0.3 mg/dL (0.2-1.3) 09/24/18 02:14 AST 28 U/L (17-59) 09/24/18 02:14 ALT 33 U/L (21-72) 09/24/18 02:14 Alkaline Phosphatase 59 U/L (38-126) 09/24/18 02:14 Total Creatine Kinase 107 U/L (55-170) 09/24/18 02:14 CK-MB (Mass) 0.90 ng/mL (0.0-3.38) 09/24/18 02:14 Troponin I < 0.0120 ng/mL (0.00-0.120) 09/24/18 02:14 Total Protein 6.5 g/dL (6.3-8.3) 09/24/18 02:14 Albumin 4.0 g/dL (3.5-5.0) 09/24/18 02:14 Globulin 2.5 gm/dL (2.2-3.9) 09/24/18 02:14 Albumin/Globulin Ratio 1.6 (1.0-2.1) 09/24/18 02:14 Urine Opiates Screen Negative (NEGATIVE) 09/23/18 20:22 Urine Methadone Screen Negative (NEGATIVE) 09/23/18 20:22 Ur Barbiturates Screen Negative (NEGATIVE) 09/23/18 20:22 Ur Phencyclidine Scrn Negative (NEGATIVE) 09/23/18 20:22 Ur Amphetamines Screen Negative (NEGATIVE) 09/23/18 20:22 U Benzodiazepines Scrn Negative (NEGATIVE) 09/23/18 20:22 U Oth Cocaine Metabols Positive (NEGATIVE) H 09/23/18 20:22 U Cannabinoids Screen Positive (NEGATIVE) H 09/23/18 20:22 - Hospital Course Hospital Course: On admission: Patient is a 48 year old male with PMHx of CABG (2016) and herniated discs who presents today for chest pain which started upon waking up at 11am. Patient says the pain is 5/10 and squeezing in nature on the left side of the chest. Patient says the pain is different from when he had his CABG, but that this is his first episode of chest pain since the surgery. Patient says he took all of his medications this morning. Patient did not have shortness of breath when the chest pain first started, but when seeing him in the ER the patient complains of shortness of breath. Patient denies any headache, dizziness, abdominal pain, nausea, vomiting, constipation or diarrhea. Patient has not seen a street and building decorator since 2 months after his CABG. Patient admits to inhaling 1/2 gram of cocaine on Monday and smoked 1 joint of marijuana. Patient used to use cocaine prior to his CABG, but this was his first time using cocaine after the CABG. Hospital course: Troponin x3 was negative, and EKG showed no signs of acute ischemic changes. CXR showed no congestion or infiltrate. Pt was started on statin and aspirin. Betablockers were held due to history of recent cocaine use. Cardio consulted, Dr. Hayward. Ultram and Flexeril were continued for pt's history of back pain secondary to herniated discs. Pt was cleared by cardiology At discharge, pt was resting comfortably. Pt's chest pain had resolved and he had no complaints. Pt was instructed that he cannot take a beta perry, which is standard of care for hx of CAD, because he continues to use cocaine and that the combination would precipitate cardiopulmonary decompensation and possible . This is a summary of the hospital course, please see EMR for full details Discharge Exam - Head Exam Head Exam: ATRAUMATIC, NORMAL INSPECTION, NORMOCEPHALIC - Additional Findings Additional findings: - Constitutional Appears: No Acute Distress - Head Exam Head Exam: ATRAUMATIC, NORMAL INSPECTION, NORMOCEPHALIC - Eye Exam Eye Exam: EOMI, Normal appearance, PERRL - ENT Exam ENT Exam: Mucous Membranes Moist, Normal Oropharynx - Neck Exam Neck exam: Positive for: Full Rom, Normal Inspection. Negative for: Tenderness - Respiratory Exam Respiratory Exam: Clear to Auscultation Bilateral, NORMAL BREATHING PATTERN. absent: Rhonchi, Wheezes - Cardiovascular Exam Cardiovascular Exam: REGULAR RHYTHM, +S1, +S2. absent: Gallop, JVD, +S4, Systolic Murmur, Diastolic murmur - GI/Abdominal Exam GI & Abdominal Exam: Normal Bowel Sounds, Soft. absent: Rebound, Tenderness - Extremities Exam Extremities exam: Positive for: normal inspection, pedal pulses present. Negative for: calf tenderness, pedal edema - Neurological Exam Neurological exam: Alert, Oriented x3 - Psychiatric Exam Psychiatric exam: Normal Affect, Normal Mood - Skin Skin Exam: Normal Color, Warm Discharge Plan - Follow Up Plan Condition: FAIR Disposition: HOME/ ROUTINE Instructions: Heart Healthy Diet, Chest Pain (DC) Additional Instructions: Pt is medically stable as per Dr. Barrow for discharge home. Patient should resume previously prescribed home medications. Additionally, pt should no longer take Metoprolol 12.5 mg PO BID. Pt should follow up with PMD, and Sewing Machine Repairer, or Dr. Hayward, within 1 week of discharge. If symptoms persist or worsen, please return to nearest ED for further evaluation. Instructions explained to the pt, who understands and agrees with discharge plan. Referrals: Freddy Hayward MD [Staff Provider] -
--- NOTE | 2018-09-24 14:45 | CARD ---
APPROVED REPORT Date of service: 09/23/2018 EKG Measurement Heart [id number] <Conclusion> Normal sinus rhythm Normal ECG
--- NOTE | 2018-09-25 13:30 | CARD ---
APPROVED REPORT Date of service: 09/24/2018 EXAM: Two-dimensional and M-mode echocardiogram with Doppler and color Doppler. Other Information Quality : GoodRhythm : INDICATION Chest Pain Surgery/Intervention CABD DIMENSIONS IVSd1.3 (0.7-1.1cm)LVDd4.4 (3.9-5.9cm) PWd1.2 (0.7-1.1cm)LA Saplnb65 (18-58mL) LVDs3.2 (2.5-4.0cm)FS (%) 28.0 % LVEF (%)70.0 (>50%)LVEF (Mckeon's)64.71 % IVC0.00 cm M-Mode DIMENSIONS RVDd2.87 (2.1-3.2cm)Left Atrium (MM)4.46 (2.5-4.0cm) IVSd1.15 (0.7-1.1cm)Aortic Root3.28 (2.2-3.7cm) LVDd4.86 (4.0-5.6cm)Aortic Cusp Exc.2.32 (1.5-2.0cm) PWd1.12 (0.7-1.1cm)FS (%) 39 % LVDs2.95 (2.0-3.8cm)TAPSE10.15 cm LVEF (%)70 (>50%) Aortic Valve AI P 1/2 [id number] Mitral Valve MV E Mplirqtz512.6cm/sMV A Zycdutqg34.8cm/sE/A ratio1.8 TDI Lateral E' Peak V11.64cm/sMedial E' Peak V11.26cm/sE/Lateral E'9.2 E/Medial E'9.6 Tricuspid Valve TR Peak [id number]/sTR Peak Gr.[id number] LEFT VENTRICLE The left ventricle is normal size. There is mild concentric left ventricular hypertrophy. The Ejection Fraction is 55-60%. There is normal LV segmental wall motion. The left ventricular diastolic function is normal. RIGHT VENTRICLE The right ventricle is normal size. The right ventricular systolic function is normal. ATRIA The left atrium is mildly dilated. The right atrium size is normal. The interatrial septum is intact with no evidence for an atrial septal defect. AORTIC VALVE The aortic valve is mildly sclerotic. The aortic valve is trileaflet. There is mild aortic regurgitation. MITRAL VALVE Mitral annular calcification is mild. There is no mitral valve regurgitation noted. TRICUSPID VALVE The tricuspid valve is normal in structure. There is mild tricuspid regurgitation. Right ventricular systolic pressure is estimated at 25 mmHg. There is no pulmonary hypertension. PULMONIC VALVE The pulmonary valve is normal in structure. GREAT VESSELS The aortic root is normal in size. The IVC is normal in size and collapses >50% with inspiration. PERICARDIAL EFFUSION There is no pericardial effusion. <Conclusion> The left ventricle is normal size. There is mild concentric left ventricular hypertrophy. The Ejection Fraction is 55-60%. The left ventricular diastolic function is normal. The left atrium is mildly dilated. There is mild aortic regurgitation. There is mild tricuspid regurgitation. Right ventricular systolic pressure is estimated at 25 mmHg. There is no pulmonary hypertension. The aortic root is normal in size. There is no pericardial effusion.
== END 2018-09-24 13:19 | disposition home or self-care (01) ==
LOC: C.ER 12:58 → C.9E 15:26 → C.6T 16:33
PROVIDERS: ADMIT Hospitalist; ATTEND Hospitalist
DX: R07.9 Chest pain, unspecified (principal); F14.10 Cocaine abuse, uncomplicated; I25.10 Atherosclerotic heart disease of native coronary artery without angina pectoris; Z95.1 Presence of aortocoronary bypass graft; I25.2 Old myocardial infarction; I10 Essential (primary) hypertension; E11.9 Type 2 diabetes mellitus without complications; E78.00 Pure hypercholesterolemia, unspecified; F17.210 Nicotine dependence, cigarettes, uncomplicated; F41.9 Anxiety disorder, unspecified; Z87.09 Personal history of other diseases of the respiratory system; Z79.82 Long term (current) use of aspirin; Z79.899 Other long term (current) drug therapy
CPT/HCPCS: 36415; 71045; 80053; 80324; 80345; 80346; 80349; 80353; 80358; 80361; 82550; 82553; 83735; 83992; 84100; 84484; 85025; 93005; 93306; 99285; G0378; J1650